=== PATIENT | male | born 1940 | race Caucasian/White ===

== ENCOUNTER 2016-05-27 05:03 | Emergency (ER) | payer OTHER ==
[~2016-05-27] VITALS: Ht 175.3 cm; Wt 90.0 kg
[2016-05-27 05:10] VITALS: TEMP 36.4; Ht 175.3 cm; Wt 90.0 kg
[2016-05-27 06:05] LABS: COMPLETE YES; EOS % 1.8 %; HEMATOCRIT 29.7 % (42-52); IG% 0.3 %; LYMPH % 11.8 %; MEAN CELL VOLUME 92.2 fL (80-100); MEAN CORPUSCULAR HEMOGLOBIN 31.7 pg (25-34); MEAN CORPUSCULAR HGB CONC 34.3 g/dl (32-36); MEAN PLATELET VOLUME 9.7 fL (7.4-10.4); NEUT % 66.1 %; PLATELET COUNT 156 K/uL (130-400); RED BLOOD COUNT 3.22 M/uL (4.7-6.1)
[2016-05-27] MEDS ORDERED: CHOL2000 PO (06:16)
[2016-05-27] MEDS ORDERED: PANT40TA PO (06:16)
[2016-05-27] MEDS ORDERED: AMLO-114 PO (06:16)
[2016-05-27] MEDS ORDERED: CLOP1TAB15 PO (06:16)
[2016-05-27] MEDS ORDERED: GLIP10TA9 PO (06:16)
[2016-05-27] MEDS ORDERED: FENO145T26 PO (06:16)
[2016-05-27] MEDS ORDERED: ATOR-22 PO (06:16)
[2016-05-27] MEDS ORDERED: PIOG1TAB20 PO (06:16)
[2016-05-27] MEDS ORDERED: METO-551 PO (06:16)
[2016-05-27] MEDS ORDERED: FURO-85 PO (06:16)
[2016-05-27] MEDS ORDERED: VALS320T PO (06:16)
[2016-05-27] MEDS ORDERED: ASPI81TA28 PO (06:16)
[2016-05-27 06:25] LABS: BUN/CREATININE RATIO 13.7 (10-20); CALCIUM 8.7 mg/dl (8.5-10.1); CREATININE 2.8 mg/dl (0.60-1.40); POTASSIUM 3.6 mmol/L (3.5-5.1)
[2016-05-27 06:28] LABS: ALB/GLOB RATIO 0.8 (0.9-2)
[2016-05-27 06:34] LABS: URINE APPEARANCE TURBID (CLEAR); URINE BILIRUBIN NEG (NEG); URINE COLOR DK YELLOW; URINE EPITHELIAL CELL AUTO >30 /lpf (0-5); URINE NITRITE NEG (NEG); URINE PH 5.5 (4.5-7.5); URINE SPECIFIC GRAVITY 1.017 (1.000-1.030); UROBILINOGEN NEG (NEG); ZZURINE CULT IF INDIC CATH YES
[2016-05-27 06:44] LABS: MANUAL MICROSCOPIC REQUIRED? NO; REVIEW REQ? YES
--- NOTE | 2016-05-27 07:10 | EMERGENCY ROOM VISIT NOTE ---
ED Visit Note First contact with patient: 05:18 I saw this patient in conjunction with Ty Newberry PA-C. I agree with his decision making and treatment plan.
[2016-05-27] MEDS ORDERED: CIPROFLOXACIN 500 MG TAB PO STA (07:14)
[2016-05-27] MEDS ORDERED: CIPR-255 PO (07:21)
[2016-05-27 07:45] VITALS: BP 133/68; PULSE 72; O2SAT 99
--- NOTE | 2016-05-28 01:16 | EMERGENCY ROOM VISIT NOTE ---
History First contact with patient: 05:18 Chief Complaint: HYPOGLYCEMIA Stated Complaint: HYPOGLYCEMIA Nursing Triage Summary: Patient arrived via ems. ems reports patient had hyperglycemic episode at home with decreased mental status and lethargy with bsg of 41. ems administered d10 iv and patient regained mental status. bsg post d10 121. History of Present Illness The patient is a 75 year old male who presents to the Emergency Room with complaints of hyperglycemic episode at home. The patient is a diabetic and is not on insulin. He does take glipizide and pioglitazone. Patient has been feeling somewhat ill the past 2-3 days and has not been eating as normal. He has been taking his medications as prescribed, and tonight he was acting very tired and not himself. His contacted EMS, the patient was found to have a blood sugar of 41. He was given D10 by EMS and brought to the ER. He had a blood sugar of 121 after the D10, and felt significantly better with return to baseline. The patient does have a significant history of diabetes, chronic kidney disease, and prostate disease. He does have an indwelling Louis. The patient does not report fever at home. No chest pain, chest tightness, shortness of breath. He does not report new numbness or paresthesias. He is without additional complaint. Review of Systems More than 10 systems were reviewed and otherwise negative with the exception of history of present illness. Past Medical/Surgical History Diabetes, chronic kidney disease Family History No pertinent family history Social History Smoking Status: Former Smoker Current/Historical Medications Scheduled Amlodipine (Norvasc), 10 MG PO DAILY Aspirin (Aspirin Ec), 81 MG PO DAILY Atorvastatin (Lipitor), 20 MG PO DAILY Cholecalciferol (Vitamin D3), 1 CAP PO DAILY Ciprofloxacin Hcl (Cipro), 500 MG PO BID Clopidogrel (Plavix), 75 MG PO DAILY Fenofibrate (Tricor ), 145 MG PO DAILY Furosemide (Lasix), 20 MG PO DAILY Glipizide (Glucotrol), 20 MG PO BID Metoprolol Tartrate (Lopressor), 50 MG PO BID Pantoprazole (Protonix), 40 MG PO QAM Pioglitazone Hcl (Pioglitazone Hcl), 45 MG PO DAILY Valsartan (Diovan), 320 MG PO DAILY Allergies Coded Allergies: No Known Allergies (Unverified , 05/27/16) Physical Exam Vital Signs Date Time Temp Pulse Resp B/P Pulse Ox O2 Delivery O2 Flow Rate FiO2 05/27/16 07:45 72 18 133/68 99 05/27/16 06:38 76 16 125/72 98 Room Air 05/27/16 05:10 36.4 60 16 164/80 100 Room Air Pain Rating (0-10): 0 Physical Exam VITALS: Vitals are noted on the nurse's note and reviewed by myself. Vital signs stable. GENERAL: Well-developed, well-nourished, white male, who is in no acute distress and resting comfortably. Patient is cooperative with the examination. HEAD: Normocephalic atraumatic. NECK: Supple without nuchal rigidity. No lymphadenopathy. No thyromegaly. Cervical spine is nontender. HEART: Regular rate and rhythm without murmurs gallops or rubs. LUNGS: Clear to auscultation bilaterally without wheezes, rales or rhonchi. No retractions or accessory muscle use. ABDOMEN: Positive normal bowel sounds x 4. Soft, nontender, without masses or organomegaly. No guarding or rebound tenderness. MUSCULOSKELETAL: No muscle atrophy, erythema, or edema noted. Full range of motion without joint tenderness in all extremities NEURO: Patient was alert and oriented to person place and time. CN II through XII grossly intact. Medical Decision & Procedures Laboratory Results 05/27/16 05:52 Red Blood Count 3.22, Mean Corpuscular Volume 92.2, Mean Corpuscular Hemoglobin 31.7, Mean Corpuscular Hemoglobin Concent 34.3, Mean Platelet Volume 9.7, Neutrophils (%) (Auto) 66.1, Lymphocytes (%) (Auto) 11.8, Monocytes (%) (Auto) 20.0, Eosinophils (%) (Auto) 1.8, Basophils (%) (Auto) 0.0, Neutrophils # (Auto ) 2.25, Lymphocytes # (Auto) 0.40, Monocytes # (Auto) 0.68, Eosinophils # (Auto ) 0.06, Basophils # (Auto) 0.00 05/27/16 05:52 Test 05/27/16 05:50 05/27/16 05:52 05/27/16 06:48 Urine Color DK YELLOW Urine Appearance TURBID (CLEAR) Urine pH 5.5 (4.5-7.5) Urine Specific [place] 1.017 (1.000-1.030) Urine Protein 1+ (NEG) Urine Glucose (UA) TRACE (NEG) Urine Ketones NEG (NEG) Urine Occult Blood TRACE (NEG) Urine Nitrite NEG (NEG) Urine Bilirubin NEG (NEG) Urine Urobilinogen NEG (NEG) Urine Leukocyte Esterase MODERATE (NEG) Urine WBC (Auto) >30 /hpf (0-5) Urine RBC (Auto) 0-4 /hpf (0-4) Urine Hyaline Casts (Auto) 1-5 /lpf (0-5) Urine Epithelial Cells (Auto) >30 /lpf (0-5) Urine Bacteria (Auto) 3+ (NEG) Urine Pathogenic Casts /lpf (0) White Blood Count 3.40 K/uL (4.8-10.8) Red Blood Count 3.22 M/uL (4.7-6.1) Hemoglobin 10.2 g/dL (14.0-18.0) Hematocrit 29.7 % (42-52) Mean Corpuscular Volume 92.2 fL (80-100) Mean Corpuscular Hemoglobin 31.7 pg (25-34) Mean Corpuscular Hemoglobin Concent 34.3 g/dl (32-36) Platelet Count 156 K/uL (130-400) Mean Platelet Volume 9.7 fL (7.4-10.4) Neutrophils (%) (Auto) 66.1 % Lymphocytes (%) (Auto) 11.8 % Monocytes (%) (Auto) 20.0 % Eosinophils (%) (Auto) 1.8 % Basophils (%) (Auto) 0.0 % Neutrophils # (Auto) 2.25 K/uL (1.4-6.5) Lymphocytes # (Auto) 0.40 K/uL (1.2-3.4) Monocytes # (Auto) 0.68 K/uL (0.11-0.59) Eosinophils # (Auto) 0.06 K/uL (0-0.5) Basophils # (Auto) 0.00 K/uL (0-0.2) RDW Standard Deviation 51.2 fL (36.4-46.3) RDW Coefficient of Variation 14.9 % (11.5-14.5) Immature Granulocyte % (Auto) 0.3 % Immature Granulocyte # (Auto) 0.01 K/uL (0.00-0.02) Anion Gap 9.0 mmol/L (3-11) Est Creatinine Clear Calc Drug Dose 26.1 ml/min Estimated GFR () 24.8 Estimated GFR (Non- 21.4 BUN/Creatinine Ratio 13.7 (10-20) Calcium Level 8.7 mg/dl (8.5-10.1) Total Bilirubin 0.8 mg/dl (0.2-1) Aspartate Amino Transf (AST/SGOT) 40 U/L (15-37) Alanine Aminotransferase (ALT/SGPT) 27 U/L (12-78) Alkaline Phosphatase 48 U/L (45-117) Total Protein 7.3 gm/dl (6.4-8.2) Albumin 3.3 gm/dl (3.4-5.0) Globulin 4.0 gm/dl (2.5-4.0) Albumin/Globulin Ratio 0.8 (0.9-2) Bedside Glucose 100 mg/dl (70-99) Medications Administered Medications (Trade) Dose Ordered Sig/Margaret Route Start Time Stop Time Status Last Admin Dose Admin Ciprofloxacin (Cipro Tab) 500 mg NOW STAT PO 05/27/16 07:14 05/27/16 07:15 DC 05/27/16 07:23 500 MG ED Course Physical exam and history were performed. Nursing notes and EMR were reviewed. Patient appears to have had a hypoglycemic episode at home earlier today. EMS was contacted by his . Upon arrival the patient appears well and is quite cooperative. IV access was established and labs were obtained. Urinalysis was collected. The patient had serial bedside glucose was performed here in the department. The patient blood work is as above and was reviewed. He is slightly anemic with an increased BUN/creatinine. This is felt to be likely from chronic kidney disease. His blood sugar was consistently above 100 here in the department. He does not have a significant elevated white blood cell count or other gross electrolyte imbalance. His urine from his catheter was highly concerning for UTI, the patient was started on Cipro here in the department. We also gave him a breakfast tray as he has not been eating well the past 3 days. I discussed the case with my attending physician, Dr. Ryder, who also independently evaluated the patient. We suspect the patient has a UTI that has made him feel with decreased appetite. While taking his normal diabetic medication, this likely pushed his sugar lower than normal, causing his symptoms. The patient was able to eat, drink, and remained without significant complaints here in the department. We will treat his UTI symptoms with Cipro. He does have a good home support network with his , and he believes he can get in with his primary care physician on Sunday after the weekend. This appears reasonable. The patient was asked to return to the ER anytime with any new, worsening, or concerning symptoms. He rated his discomfort a 0/10 at the time of departure. The chart was completed utilizing [employer] Speech Voice Recognition Software. Grammatical errors, random word insertions, pronoun errors, and incomplete sentences are an occasional consequence of this system due to software limitations, ambient noise, and hardware issues. Any formal questions or concerns about the content, text, or information contained within the body of this dictation should be directly addressed to the provider for clarification. . Medical Decision Differential diagnosis includes, but is not limited to: Infection, hypoglycemia , sepsis, altered mental status, and others Impression Primary Impression: Hypoglycemia Additional Impression: Urinary tract infection Departure Information Dispostion Home / Self-Care Condition GOOD Prescriptions Ciprofloxacin Hcl (CIPRO) 500 Mg Tab 500 MG PO BID for 10 Days, #20 TAB Prov: Ty Newberry PA-C 05/27/16 Forms HOME CARE DOCUMENTATION FORM, IMPORTANT VISIT INFORMATION Patient Instructions My [facility] Additional Instructions You were seen and evaluated today on an emergency basis only. This is not a substitute for, or an effort to provide, complete comprehensive medical care. It is not possible to recognize and treat all injuries or illnesses in a single emergency department visit. For this reason it is recommended that you followup with your primary care physician on Sunday or Sunday for ongoing care and evaluation. Ciprofloxacin(Cipro) 500mg: Take one pill twice daily for 10 days for your infection. All antibiotics can cause diarrhea. If this occurs and you feel worse or it does not resolve in 1-2 days follow up with your doctor or return to the Emergency Department as this could be signs of serious underlying problems. If you experience any pain in your tendons or any tendon injury return to the ER for re-evaluation. Any medication can cause an allergic reaction, stop the pills immediately and return to the ER for rash, hives, breathing difficulties, or swelling. You are welcome to return to the emergency department anytime with new, worsening, or concerning symptoms. Problem Qualifiers
== END 2016-05-27 07:46 | disposition home or self-care (01) ==
LOC: EDBD 05:03 → C.EDB 05:05
DX: E11.649 Type 2 diabetes mellitus with hypoglycemia without coma (principal); N39.0 Urinary tract infection, site not specified; Z79.82 Long term (current) use of aspirin; Z79.899 Other long term (current) drug therapy; Z87.891 Personal history of nicotine dependence; N18.9 Chronic kidney disease, unspecified; D64.9 Anemia, unspecified

== ENCOUNTER 2019-12-23 12:27 | Observation (INO) ==
--- NOTE | 2019-12-23 13:37 | Emergency Department Note ---
History of Present Illness General Chief complaint: Chest Pain Stated complaint: chest pain Time Seen by Provider: 12/23/19 13:25 Source: patient Mode of arrival: EMS Limitations: no limitations History of Present Illness Provider complaint: Epigastric pain, failed outpatient stress test Location: abdomen Radiation: non-radiation Severity: moderate and similar to prior episodes Pain Consistency: + intermittent and + now resolved Current Pain Intensity: 0 Quality: + aching Relieved By: + none Exacerbated By: + movement Associated symptoms: no chest pain, no cough, no diaphoresis, no fever/chills, no nausea/vomiting, no shortness of breath and no syncope Treatments prior to arrival: none This is a 79-year-old male who presents the emergency department via EMS after failing an outpatient stress test. Patient states a stress test has been scheduled as he had noted intermittent epigastric discomfort particularly with exertion. States pain is dull and nonradiating. Patient denied any other coming symptoms. Patient states while getting his stress test he began having the pain again and was told his EKG was abnormal. Pt was given asa and nitro and by the time he arrived in the ER his symptoms were resolved. VS stable per EMS. Pt states he feels no symptoms at the time of my evaluation. Pt denies any prior cardiac history. States there are a history of WA's in the family. Pt doesn't routinely see cardiology. Pt denies any recent fevers, cough, or URI symptoms. Pt denies any accompanying dizziness or nausea with the symptoms today. No recent black or bloody stools. Pt seen during a time of high acuity and national emergency pandemic while wearing PPE. Home Medications Home Medications Medication Instructions Recorded Confirmed Type cholecalciferol (vitamin D3) 2,000 unit PO DAILY 10/09/18 12/23/19 History [Vitamin D3] glipizide 10 mg PO DAILY 10/09/18 12/23/19 History pantoprazole 40 mg PO QAM 10/09/18 12/23/19 History pioglitazone 45 mg PO HS 10/09/18 12/23/19 History acetaminophen [Tylenol Extra 1,000 mg PO Q8H PRN 12/23/19 12/23/19 History Strength] aspirin 81 mg PO DAILY 12/23/19 12/23/19 History furosemide [Lasix] 40 mg PO DAILY 12/23/19 12/23/19 History metoprolol succinate 100 mg PO DAILY 12/23/19 12/23/19 History Heparin IV Low Dose WITH Bolus 1 dose IV Q15M #0 12/24/19 Rx atorvastatin 40 mg PO HS #0 tab 12/24/19 12/23/19 Rx isosorbide mononitrate 30 mg PO QAM #0 tab 12/24/19 Rx nitroglycerin [Nitro-Bid] 1 inch EXT Q6H #0 g 12/24/19 Rx Allergies Allergy/AdvReac Type Severity Reaction Status Date / Time No Known Allergies Allergy Verified 12/23/19 15:14 Past Med/Surg History Medical History (Updated 12/25/19 @ 17:23 by Tracey Lyles, ) Chronic heart failure with preserved ejection fraction (HFpEF) Chronic indwelling Louis catheter CKD (chronic kidney disease) stage 4, GFR 15-29 ml/min Diabetic retinopathy DM type 2 (diabetes mellitus, type 2) GERD (gastroesophageal reflux disease) HLD (hyperlipidemia) HTN (hypertension) Macular degeneration PVD (peripheral vascular disease) Vitamin D deficiency Surgical History (Updated 12/23/19 @ 15:37 by Maria Luisa Mae PA-C) Arteriovenous fistula LUE, patent History of amputation of lesser toe of right foot History of cataract extraction History of tonsillectomy and adenoidectomy Family History Father Heart disease WA @ age 77 Sister Diabetes Mother Cirrhosis Social History (Updated 12/23/19 @ 15:38 by Maria Luisa Mae PA-C) Smoking Status: Never smoker Second Hand Exposure: No; Hx Alcohol Use: No Hx Substance Use: No Preferred Language: Persian Communication Ability: Effective Beliefs That Will Affect Care: None marital status: / marital status details: passed 03/2019 Current Living Situation: Alone Feels Safe at Home: Yes Assistive Devices: Cane, Glasses and Walker Review of Systems See HPI for pertinent positives & negatives. and A total of 10 systems reviewed and were otherwise negative Physical Exam Vital Signs Vital Signs - 24 hr 12/23/19 12:33 12/23/19 12:36 12/23/19 12:41 Temperature 36.6 C Temperature Source Oral Pulse Rate 78 78 77 Pulse Rate from SpO2 Sensor 78 77 Respiratory Rate 20 12 Respiratory Depth Normal Blood Pressure 149/76 H 149/76 H Blood Pressure Mean 100 98 Pulse Oximetry 100 100 99 Oxygen Delivery Method Room Air Sepsis Recent Fever Within 48 Hours No Sepsis New/Unexplained Change in Mental Status N/A Sepsis Action Taken by Nursing No Action Required 12/23/19 12:50 12/23/19 13:00 12/23/19 13:10 Temperature Temperature Source Pulse Rate 80 75 74 Pulse Rate from SpO2 Sensor 80 75 74 Respiratory Rate 19 17 16 Respiratory Depth Blood Pressure Blood Pressure Mean Pulse Oximetry 97 99 100 Oxygen Delivery Method Sepsis Recent Fever Within 48 Hours Sepsis New/Unexplained Change in Mental Status Sepsis Action Taken by Nursing 12/23/19 13:20 12/23/19 13:30 12/23/19 13:40 Temperature Temperature Source Pulse Rate 73 67 77 Pulse Rate from SpO2 Sensor 74 66 75 Respiratory Rate 22 14 16 Respiratory Depth Blood Pressure Blood Pressure Mean Pulse Oximetry 97 99 100 Oxygen Delivery Method Sepsis Recent Fever Within 48 Hours Sepsis New/Unexplained Change in Mental Status Sepsis Action Taken by Nursing 12/23/19 13:50 12/23/19 14:00 12/23/19 14:10 Temperature Temperature Source Pulse Rate 73 61 65 Pulse Rate from SpO2 Sensor 61 65 Respiratory Rate 17 11 L 22 Respiratory Depth Blood Pressure Blood Pressure Mean Pulse Oximetry 100 100 Oxygen Delivery Method Sepsis Recent Fever Within 48 Hours Sepsis New/Unexplained Change in Mental Status Sepsis Action Taken by Nursing 12/23/19 14:20 12/23/19 14:30 Temperature Temperature Source Pulse Rate 61 61 Pulse Rate from SpO2 Sensor 60 60 Respiratory Rate 13 16 Respiratory Depth Blood Pressure 166/69 H Blood Pressure Mean 99 Pulse Oximetry 100 99 Oxygen Delivery Method Sepsis Recent Fever Within 48 Hours Sepsis New/Unexplained Change in Mental Status Sepsis Action Taken by Nursing GENERAL: alert, well appearing, well nourished, no distress, non-toxic EYE EXAM: normal conjunctiva, PERRL and EOM's grossly intact OROPHARYNX: no exudate, no erythema, lips, buccal mucosa, and tongue normal and mucous membranes are moist NECK: supple, no nuchal rigidity, no adenopathy, non-tender LUNGS: Clear to auscultation. Normal chest wall mechanics, no w/r/r HEART: no murmurs, S1 normal and S2 normal ABDOMEN: abdomen soft, non-tender, normo-active bowel sounds, no masses, no rebound or guarding. No reproducible pain. BACK: Back is symmetrical on inspection and there is no deformity, no midline tenderness, no CVA tenderness. SKIN: no rashes and no bruising UPPER EXTREMITIES: upper extremities are grossly normal. FROM, nml pulses b/l. LOWER EXTREMITIES: No pitting edema. FROM, nml pulses b/l. NEURO EXAM: Normal sensorium, cranial nerves II-XII grossly intact, normal speech, no gross weakness of arms, no gross weakness of legs. Gross sensation intact. Course Course 1435: Discussed with Maria Luisa Gibson, [facility] hospitalist service. Administered Medications Discontinued Medications Aspirin (Aspirin 81 Mg Ectab) 81 mg PO DAILY [facility] Stop: 01/23/20 08:59 Last Admin: 12/24/19 08:38 Dose: 81 mg Documented by: [id number] Atorvastatin Calcium (Atorvastatin 40 Mg Tab) 40 mg PO HS [facility] Stop: 01/22/20 20:59 Last Admin: 12/23/19 21:25 Dose: 40 mg Documented by: [id number] Furosemide (Furosemide 40 Mg Tab) 40 mg PO DAILY [facility] Stop: 01/23/20 08:59 Last Admin: 12/24/19 08:39 Dose: 40 mg Documented by: [id number] Heparin Sodium (Porcine) (Heparin Sod 5,000 Unit/0.5 Ml Vial) 5,000 units SQ Q8 [facility] Stop: 01/22/20 21:59 Last Admin: 12/24/19 05:57 Dose: 5,000 units Documented by: [id number] Cosigned by: [id number] Admin: 12/23/19 22:38 Dose: Not Given Documented by: [id number] Heparin Sodium/Dextrose (Heparin Iv Low Dose With Bolus) 1 ea IV Q15M [facility]; Protocol Stop: 01/23/20 11:32 Last Admin: 12/24/19 12:27 Dose: 1 ea Documented by: [id number] Admin: 12/24/19 12:03 Dose: 1 ea Documented by: [id number] Admin: 12/24/19 12:02 Dose: 1 ea Documented by: [id number] Admin: 12/24/19 11:45 Dose: 1 ea Documented by: [id number] Magnesium Sulfate/Dextrose (Magnesium Sulfate / D5w) 1 gm in 100 mls @ 100 mls/hr IV Q1H [facility] Stop: 12/23/19 16:05 Last Infusion: 12/23/19 16:49 Dose: 0 mls/hr Documented by: [id number] Admin: 12/23/19 15:44 Dose: 100 mls/hr Documented by: [id number] Infusion: 12/23/19 15:44 Dose: 0 mls/hr Documented by: [id number] Admin: 12/23/19 14:27 Dose: 100 mls/hr Documented by: [id number] Heparin Sodium/Dextrose (Heparin Sodium/Dextrose) 25,000 units in 500 mls @ 19 mls/hr IV .Q24H [facility]; Protocol Stop: 01/23/20 12:29 Last Admin: 12/24/19 12:37 Dose: 950 units/hr, 19 mls/hr Documented by: [id number] Cosigned by: [id number] Heparin Sodium (Porcine) 4,000 (units/ Syringe) 4 mls @ 10 mls/min IV NOW ONE Stop: 12/24/19 12:46 Last Admin: 12/24/19 12:53 Dose: 10 mls/min Documented by: [id number] Cosigned by: [id number] Insulin Aspart (Insulin Aspart 100 Units/Ml 3 Ml Pen) 0 units SC ACHS [facility] Stop: 01/22/20 17:58 Last Admin: 12/24/19 12:01 Dose: Not Given Documented by: [id number] Cosigned by: [id number] Admin: 12/24/19 07:32 Dose: Not Given Documented by: [id number] Admin: 12/23/19 21:41 Dose: Not Given Documented by: [id number] Admin: 12/23/19 21:40 Dose: 2 units Documented by: [id number] Cosigned by: [id number] Insulin Aspart (Insulin Aspart Per Unit) Confirm Administered Dose 1 units .ROUTE .STK-MED ONE Stop: 12/23/19 21:02 Last Admin: 12/23/19 21:41 Dose: Not Given Documented by: [id number] Insulin Glargine (Insulin Glargine Solostar 100 Units/Ml 3 Ml Pen) 0 units SC BID [facility]; Protocol Stop: 01/22/20 20:59 Last Admin: 12/24/19 08:33 Dose: Not Given Documented by: [id number] Admin: 12/23/19 21:25 Dose: Not Given Documented by: [id number] Insulin Human Regular (Novolin-R Insulin Per Unit Charge) Confirm Administered Dose 1 units .ROUTE .STK-MED ONE Stop: 12/23/19 21:01 Last Admin: 12/23/19 21:40 Dose: Not Given Documented by: [id number] Isosorbide Mononitrate (Isosorbide Roane Extended Rel 30 Mg Tabcr) 30 mg PO QAM [facility] Stop: 01/22/20 15:29 Last Admin: 12/24/19 09:22 Dose: 30 mg Documented by: [id number] Admin: 12/23/19 15:55 Dose: 30 mg Documented by: [id number] Metoprolol Succinate (Metoprolol Succ 50mg Ext Rel Tab) 100 mg PO DAILY [facility] Stop: 01/23/20 08:59 Last Admin: 12/24/19 08:38 Dose: 100 mg Documented by: [id number] Nitroglycerin (Nitroglycerin 2% Ointment 30gm Tube) 1 inch EXT Q6H [facility] Stop: 01/23/20 11:59 Last Admin: 12/24/19 12:37 Dose: 1 inch Documented by: [id number] Pantoprazole Sodium (Pantoprazole 40 Mg Tab) 40 mg PO QAM [facility] Stop: 01/23/20 08:59 Last Admin: 12/24/19 08:39 Dose: 40 mg Documented by: [id number] Vitamin D (Cholecalciferol 1,000 Units 25 Mcg Tab) 2,000 units PO DAILY [facility] Stop: 01/23/20 08:59 Last Admin: 12/24/19 08:38 Dose: 2,000 units Documented by: [id number] Medical Decision Making Differential Diagnosis Differential diagnoses includes but is not limited to gastritis, peptic ulcer disease, GERD, gallbladder disease, pancreatitis, small bowel obstruction, acute coronary syndrome, pericarditis, ischemic bowel, irritable bowel disease, irritable bowel syndrome, appendicitis, diverticulitis, malignancy, hernia, urinary tract infection, torsion, [/ectopic (if female)], perforation, trauma, infectious. Medical Records Attestation: I reviewed the patient's medical records. Home Medications Current Medication List: was personally reviewed by me Laboratory Data Attestation: I reviewed the patient's lab results. Result diagrams: 12/24/19 05:02 12/24/19 05:02 Lab Results 12/23/19 12/23/19 12/23/19 Range/Units 13:00 13:00 13:00 WBC 4.85 (4.8-10.8) K/uL RBC 3.58 L (4.7-6.1) M/uL Hgb 11.1 L (14.0-18.0) g/dL Hct 33.1 L (42-52) % MCV 92.5 (80-100) fL MCH 31.0 (25-34) pg MCHC 33.5 (32-36) g/dL RDW Std Deviation 45.5 (36.4-46.3) fL RDW Coeff of Jan 13.5 (11.5-14.5) % Plt Count 149 (130-400) K/uL MPV 10.6 H (7.4-10.4) fL Immature Gran % (Auto) 0.4 % Neut % (Auto) 77.9 % Lymph % (Auto) 13.0 % Roane % (Auto) 6.0 % Eos % (Auto) 2.5 % Baso % (Auto) 0.2 % Neut # (Auto) 3.78 (1.4-6.5) K/uL Lymph # (Auto) 0.63 L (1.2-3.4) K/uL Roane # (Auto) 0.29 (0.11-0.59) K/uL Eos # (Auto) 0.12 (0-0.5) K/uL Baso # (Auto) 0.01 (0-0.2) K/uL Immature Gran # (Auto) 0.02 (0.00-0.02) K/uL PT 11.7 (9.0-12.0) Seconds INR 1.1 (0.9-1.1) Sodium 138 (136-145) mmol/L Potassium 4.9 (3.5-5.1) mmol/L Chloride 107 (98-107) mmol/L Carbon Dioxide 27 (21-32) mmol/L Anion Gap 5.0 (3-11) BUN 56 H (7-18) mg/dl Creatinine 2.89 H (0.6-1.4) mg/dl Est Cr Clr Drug Dosing 24.4 ml/min Est GFR ( Amer) 23.2 Est GFR (Non-Af Amer) 20.0 BUN/Creatinine Ratio 19.4 (10-20) Glucose 96 (70-99) mg/dl Calcium 8.5 (8.5-10.1) mg/dl Magnesium 1.5 L (1.8-2.4) mg/dl Total Bilirubin 0.4 (0.2-1) mg/dl AST 27 (15-37) U/L ALT 24 (12-78) U/L Alkaline Phosphatase 86 (45-117) U/L Troponin I < 0.015 (0-0.045) ng/ml Total Protein 7.1 (6.4-8.2) gm/dl Albumin 3.5 (3.4-5.0) gm/dl Globulin 3.6 (2.5-4.0) gm/dl Albumin/Globulin Ratio 1.0 (0.9-2) Lipase 299 (73-393) U/L 10/20/20 Range/Units 13:00 WBC (4.8-10.8) K/uL RBC (4.7-6.1) M/uL Hgb (14.0-18.0) g/dL Hct (42-52) % MCV (80-100) fL MCH (25-34) pg MCHC (32-36) g/dL RDW Std Deviation (36.4-46.3) fL RDW Coeff of Jan (11.5-14.5) % Plt Count (130-400) K/uL MPV (7.4-10.4) fL Immature Gran % (Auto) % Neut % (Auto) % Lymph % (Auto) % Roane % (Auto) % Eos % (Auto) % Baso % (Auto) % Neut # (Auto) (1.4-6.5) K/uL Lymph # (Auto) (1.2-3.4) K/uL Roane # (Auto) (0.11-0.59) K/uL Eos # (Auto) (0-0.5) K/uL Baso # (Auto) (0-0.2) K/uL Immature Gran # (Auto) (0.00-0.02) K/uL PT (9.0-12.0) Seconds INR (0.9-1.1) Sodium (136-145) mmol/L Potassium (3.5-5.1) mmol/L Chloride (98-107) mmol/L Carbon Dioxide (21-32) mmol/L Anion Gap (3-11) BUN (7-18) mg/dl Creatinine (0.6-1.4) mg/dl Est Cr Clr Drug Dosing ml/min Est GFR ( Amer) Est GFR (Non-Af Amer) BUN/Creatinine Ratio (10-20) Glucose (70-99) mg/dl Calcium (8.5-10.1) mg/dl Magnesium 1.5 L (1.8-2.4) mg/dl Total Bilirubin (0.2-1) mg/dl AST (15-37) U/L ALT (12-78) U/L Alkaline Phosphatase (45-117) U/L Troponin I < 0.015 (0-0.045) ng/ml Total Protein (6.4-8.2) gm/dl Albumin (3.4-5.0) gm/dl Globulin (2.5-4.0) gm/dl Albumin/Globulin Ratio (0.9-2) Lipase (73-393) U/L Imaging Data My Impression: X-ray: I interpreted the following studies. Chest: A single view study of the chest was reviewed and was negative for cardiomegaly, focal infiltrate, effusion, pulmonary edema, or wide mediastinum. ECG Data Attestation: I personally reviewed and interpreted this ECG as follows: Indication: + abdominal pain Rate (beats per minute): 80 Rhythm: + normal sinus ECG Intervals/blocks: + First degree AV block, + Normal QRS and + Normal QT ECG ST segments: + Nonspecific ST abnormalities Additional Comments: Questionable early ST elevation noted inferiorly/anteriorly, not a full mm, no reciprocal changes This is markedly improved compared to EKGs from stress test sent with from outpatient office Blood Pressure Blood Pressure Findings: Elevated blood pressure Blood Pressure Disposition: further management by hospitalist MDM Narrative Pt sent in by cardiology after a failed outpt stress test. VS stable and pt without symptoms on arrival here. Pt's description is that of exertional symptoms, none at rest. No acute EKG changes. Labs drawn and sent and cxr performed. Pt continued to be symptom free while in the ER. VS stable. No recurrent pain. Case discussed with hospitalist for additional mgmt prior to all results returning. Will defer initiation of heparin to them. Discussed with patient additional cardiac testing likely needed. First troponin negative. An order was placed for continuous cardiac monitoring. The monitor shows a rate of 58__ with _sinus brady__ rhythm. Impression & Plan Exertional angina, Abnormal dobutamine stress echocardiogram, HTN (hypert ension), Hypomagnesemia, CKD (chronic kidney disease) stage 4, GFR 15-29 ml/min Discharge Plan Visit Data Chief Complaint: Chest Pain Stated Complaint: chest pain ED Provider: Tracey Lyles Discharge Problem: Exertional angina, Abnormal dobutamine stress echocardiogram, HTN (hypertension), Hypomagnesemia, CKD (chronic kidney disease) stage 4, GFR 15-29 ml/min Patient Disposition: Admitted As Inpatient Discharge Instructions Interventions: ED Discharge Assessment Last Done: 12/24/19 11:03 Discharge Problem: HTN (hypertension) Qualifiers: Hypertension type: essential hypertension Qualified Code(s): I10 - Essential (primary) hypertension
[2019-12-23 13:44] LABS: Basophils # (auto) 0.01 K/uL (0-0.2); Basophils % (auto) 0.2 %; Eosinophils # (auto) 0.12 K/uL (0-0.5); Eosinophils % (auto) 2.5 %; Hematocrit (blood only) 33.1 % (42-52); Hemoglobin 11.1 g/dL (14.0-18.0); Immature Granulocytes # (auto) 0.02 K/uL (0.00-0.02); Immature Granulocytes % (auto) 0.4 %; Lymphocytes # (auto) 0.63 K/uL (1.2-3.4); Mean Corpuscular Hgb Conc 33.5 g/dL (32-36); Mean Corpuscular Volume 92.5 fL (80-100); Mean Platelet Volume 10.6 fL (7.4-10.4); Monocytes # (auto) 0.29 K/uL (0.11-0.59); Neutrophils # (auto) 3.78 K/uL (1.4-6.5); Neutrophils % (auto) 77.9 %; Platelet Count 149 K/uL (130-400); RDW Coefficient of Variation 13.5 % (11.5-14.5); RDW Standard Deviation 45.5 fL (36.4-46.3); Red Blood Count 3.58 M/uL (4.7-6.1); White Blood Count 4.85 K/uL (4.8-10.8)
[2019-12-23 13:50] LABS: Alanine Aminotransferase 24 U/L (12-78); Albumin Level 3.5 gm/dl (3.4-5.0); Aspartate Aminotransferase 27 U/L (15-37); BUN Creatinine Ratio 19.4 (10-20); Blood Urea Nitrogen 56 mg/dl (7-18); Calcium 8.5 mg/dl (8.5-10.1); Carbon Dioxide 27 mmol/L (21-32); Chloride 107 mmol/L (98-107); Creatinine Clr Calc Pharmacy 24.4 ml/min; Est GFR (African American) 23.2; Glucose 96 mg/dl (70-99); Magnesium 1.5 mg/dl (1.8-2.4); Potassium 4.9 mmol/L (3.5-5.1); Sodium 138 mmol/L (136-145)
[2019-12-23 13:55] LABS: Alkaline Phosphatase 86 U/L (45-117); Bilirubin,Total 0.4 mg/dl (0.2-1); Globulin 3.6 gm/dl (2.5-4.0); INR 1.1 (0.9-1.1); Lipase 299 U/L (73-393); Prothrombin Time 11.7 Seconds (9.0-12.0); Total Protein 7.1 gm/dl (6.4-8.2); Troponin I < 0.015 ng/ml (0-0.045)
[2019-12-23] MEDS: MAGNESIUM SULFATE / D5W 1 GM/100 ML BAG IV SCH ×2 (14:27→15:44)
--- NOTE | 2019-12-23 14:41 | Cardiology Consultation ---
Date of Consultation December 23, 2019 Assessment & Plan (1) Abnormal dobutamine stress echocardiogram: (2) Exertional angina: (3) CKD (chronic kidney disease) stage 4, GFR 15-29 ml/min: (4) DM type 2 (diabetes mellitus, type 2): 79-year-old patient with CKD stage IV presents for evaluation of abnormal dobutamine stress echo with significant anginal symptoms during testing and recovery. Significant ischemic ECG changes recorded. Patient currently pain- free after 20 mg IV metoprolol and 2 sublingual nitroglycerin. Initial troponin unremarkable. ST segments have returned to baseline and patient currently asymptomatic at rest. Describes progressive class II-III exertional angina over the preceding 5 weeks despite treatment with high-dose beta-matilda therapy, Toprol-XL 100 mg daily. Recommend addition of long-acting nitrates, isosorbide 30 mg daily. Risk versus benefit of invasive diagnostic cardiac catheterization discussed at length. Patient understands that proceeding with heart catheterization may result in need for permanent hemodialysis. Consider transfer to [facility] in a.m. for high risk cardiac catheterization. N.p.o. except medications after midnight. No indication for IV anticoagulation currently. Continue aspirin as previously ordered. Titrate atorvastatin to 40 mg daily. History of Present Illness Reason for Consultation: Chest pain, abnormal dobutamine stress echo Requesting Physician: Dr. Bradford Attending Physician: Dr. Bradford History of Present Illness 79-year-old patient presented to the cardiology clinic today for dobutamine stress echo. Testing ordered due to exertional anginal symptoms. Patient reports chest discomfort in the substernal region when walking approximately 10 to 20 feet. Symptoms consistently reproducible. Attempted to perform some minor plumbing in his home over the weekend, however, unable to complete the task due to angina. Dobutamine stress echo performed today demonstrates significant ST-T wave abnormalities with evidence of inferior, posterior, inferoseptal ischemia on stress imaging. Patient treated with 20 mg of IV metoprolol and 2 sublingual nitroglycerin. Transferred to the ER for evaluation and likely observation. Currently chest pain-free and resting comfortably. Denies any resting angina. Reports 30-year history of diabetes and CKD stage IV-V. Left upper extremity AV fistula placed nearly 1 year ago. Denies orthopnea or PND. Chronic bilateral pedal and ankle edema stable. No palpitations, lightheadedness, dizziness, syncope, or near syncope. Resting echocardiogram demonstrates preserved LV systolic function. Allergies Allergy/AdvReac Type Severity Reaction Status Date / Time No Known Allergies Allergy Verified 12/23/19 15:14 Home Medications Home Medications Medication Instructions Recorded Confirmed Type atorvastatin 20 mg PO HS 10/09/18 12/23/19 History cholecalciferol (vitamin D3) 2,000 unit PO DAILY 10/09/18 12/23/19 History [Vitamin D3] glipizide 10 mg PO DAILY 10/09/18 12/23/19 History pantoprazole 40 mg PO QAM 10/09/18 12/23/19 History pioglitazone 45 mg PO HS 10/09/18 12/23/19 History acetaminophen [Tylenol Extra 1,000 mg PO Q8H PRN 12/23/19 12/23/19 History Strength] aspirin 81 mg PO DAILY 12/23/19 12/23/19 History furosemide [Lasix] 40 mg PO DAILY 12/23/19 12/23/19 History metoprolol succinate 100 mg PO DAILY 12/23/19 12/23/19 History Patient History Medical History Hypoglycemia Urinary tract infection Family History Other No significant family history Social History Smoking Status: Never smoker Feels Safe at Home: Yes Review of Systems Review of Systems: All systems reviewed & are unremarkable except as noted in HPI & below Physical Exam Constitutional: well developed and well nourished; no acute distress and not ill appearing Respiratory: normal respiratory effort, lungs clear to auscultation Auscultation: no crackles, no rales, no rhonchi, no wheezes and no pleural rub Cardiovascular: Rate/Rhythm: regular rate and regular rhythm Heart Sounds: normal S1 and normal S2; no gallop, no murmur and no cardiac rub Vessels: no JVD and no carotid bruit Extremities: + edema (1+ bilateral pedal and ankle edema) Gastrointestinal (Abdomen): Inspection/Auscultation: abdomen normal to inspection and normal bowel sounds; abdomen not distended Percussion/Palpation: abdomen soft; abdomen nontender, no guarding and abdomen not rigid Skin: no rashes, warm and dry Neurologic: CN's II-XI intact bilaterally and moves all extremities; no focal motor deficits Speech / Cognition: normal speech Motor/Sensory: no tremor Psychiatric: A+Ox3, euthymic affect Results & Data ([facility]) Vital Signs (Past 12 Hours) Vital Signs Temp Pulse Resp BP Pulse Ox 12/23/19 12:41 77 12 99 12/23/19 12:36 78 149/76 H 100 12/23/19 12:33 36.6 C 78 20 149/76 H 100
--- NOTE | 2019-12-23 14:52 | XRay Report ---
XR chest 1V portable CLINICAL HISTORY: Abnormal stress test COMPARISON STUDY: No previous studies for comparison. FINDINGS: The cardiac and mediastinal contours are normal. There is no evidence of focal pulmonary co nsolidation. There is no evidence of failure. No pleural effusions are visualized.[There is an old ri ght-sided rib fracture. IMPRESSION: No active disease in the chest. ACT 112: Negative or not required by law. Electronically signed by: Be West M.D. 12/23/2019 2:51 PM
--- NOTE | 2019-12-23 15:18 | History & Physical Report ---
Date of Service December 23, 2019 Assessment & Plan (1) Exertional angina: (2) Abnormal dobutamine stress echocardiogram: This is a pleasant 79-year-old male who has significant past medical history of T2DM with diabetic nephropathy and retinopathy, CKD stage IV with mature left upper extremity AV fistula in place, HTN, HLD, chronic HFpEF, PVD, BPH with chronic bladder obstruction and chronic Avila catheter in place, macular degeneration, anemia of chronic disease who presents to ED secondary to abnormal stress echo outpatient prior to arrival. Given risk factors and failed outpt stress echocardiogram pt will be admitted to [facility] tele consult cardiology -appreciate their input Imdur 30mg daily started continue ASA, metoprolol, titrate statin to 40mg daily lipid panel, A1C in a.m. cycle troponins Per cardiology consider transfer to [facility] for high risk cardiac cath in a.m. in setting of CKD stage 4 NPO after midnight (3) Hypomagnesemia: mag 1.5 received 2g IV mag in ED repeat @ 1830 along with trop (4) DM type 2 (diabetes mellitus, type 2): Last A1c 7.3 on 05/07/2019 Obtain A1c in a.m. Hold pioglitazone and glipizide Lantus/NovoLog per protocol Given history of HFpEF would advise discontinuing pioglitazone in outpt setting (5) Chronic heart failure with preserved ejection fraction (HFpEF): EF 55-60%, cardiology on board continue lasix, metoprolol daily weights, strict I and O (6) CKD (chronic kidney disease) stage 4, GFR 15-29 ml/min: baseline cr 2.7-2.8, bun/cr 56 and 2.89 today follows [facility] nephro, has mature AVF in place LUE daily weights, strict I and O monitor renal function closely (7) HTN (hypertension): Blood pressure elevated in ED on metoprolol and lasix as outpt Imdur added in ED monitor (8) HLD (hyperlipidemia): continue statin, titrate to 40mg @ HS lipid panel in a.m. (9) Chronic indwelling Avila catheter: 2/2 to chronic bladder outlet obstruction, follows urology changed 15 days ago daily avila care (10) DVT prophylaxis: SQ Heparin Disposition: admit to PCU Follow up: PCP Dr. Burgess upon discharge Pt was seen and examined in collaboration with Dr. Bradford, please see addendum History of Present Illness Chief Complaint: Abnormal stress echo prior to arrival; exertional chest pain x2 to 3 months. Primary Care Provider: Dr. Burgess This is a pleasant 79-year-old male who has significant past medical history of T2DM with diabetic nephropathy and retinopathy, CKD stage IV with mature left upper extremity AV fistula in place, CAD, HTN, HLD, chronic HFpEF, PVD, BPH with chronic bladder obstruction and chronic Avila catheter in place, macular degeneration, anemia of chronic disease who presents to ED secondary to abnormal stress echo outpatient prior to arrival. Over the course the last 2 to 3 months patient has been experiencing exertional substernal chest discomfort that would last 1 to 2 minutes and resolve with resting. He had no other symptoms including shortness of breath, diaphoresis, nausea, vomiting, dizziness or presyncope. Due to risk factors he was referred to cardiology for further evaluation. There was concern for ischemia versus uremic pericarditis given the nature of symptoms. He was referred for stress echocardiogram which was performed today, 12/23/[address] Samaniego. With dobutamine stress he had EKG changes lasting greater than 10 minutes post procedure. Imaging revealed stress-induced hypokinesis of basilar and posterior inferior and inferior septal velez that did resolve after rest. He required IV metoprolol 10 mg x 2 as well as a sublingual nitro x2 with improvement of symptoms. He was referred to ED for admission and further work-up. Currently he feels well and denies any current chest pain. He further denies any recent illness, fever, chills, sweats, lightheadedness, dizziness, syncope, palpitations, shortness breath, cough, hemoptysis, nausea, vomiting, abdominal pain. He does have a Avila catheter in place which was changed approximately 15 days ago. He gets it changed every 30 days and follows with urology every 6 months. He manages the bag himself. His bowels are moving without difficulty and denies melena or hematochezia. He lives alone and does occasionally use assist device for ambulation. His in March 2019. He has been compliant with his medications. In ED patient made hemodynamically stable. Labs notable for elevated BUN and creatinine 56 and 2.89, mag 1.5, H&H 11.1 and 33.1, EKG with normal sinus rhythm [address] or T wave changes. Chest x-ray negative for acute cardiopulmonary abnormality. He was seen and evaluated by cardiology in ED. Recommendation is for inpatient evaluation and possible transfer to [facility] secondary to complicated diagnostic cardiac catheterization in setting of CKD stage IV. Allergies Allergy/AdvReac Type Severity Reaction Status Date / Time No Known Allergies Allergy Verified 12/23/19 15:14 Home Medications Home Medications Medication Instructions Recorded Confirmed Type atorvastatin 20 mg PO HS 10/09/18 12/23/19 History cholecalciferol (vitamin D3) 2,000 unit PO DAILY 10/09/18 12/23/19 History [Vitamin D3] glipizide 10 mg PO DAILY 10/09/18 12/23/19 History pantoprazole 40 mg PO QAM 10/09/18 12/23/19 History pioglitazone 45 mg PO HS 10/09/18 12/23/19 History acetaminophen [Tylenol Extra 1,000 mg PO Q8H PRN 12/23/19 12/23/19 History Strength] aspirin 81 mg PO DAILY 12/23/19 12/23/19 History furosemide [Lasix] 40 mg PO DAILY 12/23/19 12/23/19 History metoprolol succinate 100 mg PO DAILY 12/23/19 12/23/19 History Past Med/Surg History Medical History (Updated 12/23/19 @ 15:41 by Maria Luisa Mae PA-C) Chronic heart failure with preserved ejection fraction (HFpEF) Chronic indwelling Avila catheter CKD (chronic kidney disease) stage 4, GFR 15-29 ml/min Diabetic retinopathy DM type 2 (diabetes mellitus, type 2) GERD (gastroesophageal reflux disease) HLD (hyperlipidemia) HTN (hypertension) Macular degeneration PVD (peripheral vascular disease) Vitamin D deficiency Surgical History (Updated 12/23/19 @ 15:37 by Maria Luisa Mae PA-C) Arteriovenous fistula LUE, patent History of amputation of lesser toe of right foot History of cataract extraction History of tonsillectomy and adenoidectomy Family History Father Heart disease [place] @ age 77 Sister Diabetes Mother Cirrhosis Social History (Updated 12/23/19 @ 15:38 by Maria Luisa Mae PA-C) Smoking Status: Never smoker Hx Alcohol Use: Yes Alcohol type: beer Alcohol type Comment: Former, has not used alcohol in several years Hx Substance Use: No Preferred Language: Tajik Communication Ability: Effective marital status: / marital status details: passed 03/2019 Current Living Situation: Alone Feels Safe at Home: Yes Review of Systems Review of Systems: All systems reviewed & are unremarkable except as noted in HPI & below Physical Exam Physical Exam: Constitutional: WD/WN, alert, male, vitals as above, NAD, sitting up in bed, pleasant, conversing easily Head: Normocephalic, Atraumatic Eyes: PERRL, conjunctivae normal, anicteric sclerae ENMT: external ear and nose normal, oropharynx normal Neck: trachea midline, no thyromegaly normal visual inspection Respiratory: normal respiratory effort, lungs clear to auscultation, no wheeze, rales, rhonchi. Normal insp/exp effort, no accessory muscle use Cardiovascular: RRR, no murmur, trace pedal edema, Vessels: no JVD or carotid bruit Chest: normal inspection of chest, chest pain not reproducible Abdomen: normal bowel sounds, soft, nontender, no hepatosplenomegaly Musculoskeletal: no cyanosis or clubbing, extremities motor strength 5/5 Skin: no rashes, warm and dry normal turgor Neurologic: PERRL, EOMI, accommodation nl, no face palsy, no dysarthria CN's II-XI intact bilaterally and moves all extremities Psychiatric: A+Ox3, euthymic affect Lymphatic: no cervical or axillary lymphadenopathy : Avila catheter bag on right lower extremity, draining clear yellow urine Results & Data Results & Data ([facility]) Vital Signs (Past 12 Hours) Vital Signs Temp Pulse Resp BP Pulse Ox 12/23/19 14:30 61 16 166/69 H 99 12/23/19 14:20 61 13 100 12/23/19 14:10 65 22 100 12/23/19 14:00 61 11 L 100 12/23/19 13:50 73 17 12/23/19 13:40 77 16 100 12/23/19 13:30 67 14 99 12/23/19 13:20 73 22 97 12/23/19 13:10 74 16 100 12/23/19 13:00 75 17 99 12/23/19 12:50 80 19 97 12/23/19 12:41 77 12 99 12/23/19 12:36 78 149/76 H 100 12/23/19 12:33 36.6 C 78 20 149/76 H 100 Laboratory Results Short CBC 12/23/19 Range/Units 13:00 WBC 4.85 (4.8-10.8) K/uL Hgb 11.1 L (14.0-18.0) g/dL Hct 33.1 L (42-52) % Plt Count 149 (130-400) K/uL BMP 12/23/19 13:00 Sodium 138 Potassium 4.9 Chloride 107 Carbon Dioxide 27 BUN 56 H Creatinine 2.89 H Glucose 96 Calcium 8.5 Cardiac Enzymes 12/23/19 Range/Units 13:00 Troponin I < 0.015 (0-0.045) ng/ml Liver Function 12/23/19 Range/Units 13:00 Total Bilirubin 0.4 (0.2-1) mg/dl AST 27 (15-37) U/L ALT 24 (12-78) U/L Alkaline Phosphatase 86 (45-117) U/L Albumin 3.5 (3.4-5.0) gm/dl Diagnostic Findings CXR: IMPRESSION: No active disease in the chest. Abnormal stress echo: Stress echocardiogram demonstrated stress-induced hypokinesis of the basilar posterior, inferior and inferoseptal wall which return to normal in recovery phase late. EF 55-60%, mild LA enlargement, mild LVH, Diastolic dysfunction Medications Administered Magnesium Sulfate/Dextrose (Magnesium Sulfate / D5w) 1 gm in 100 mls @ 100 mls/hr IV Q1H TATIANA Stop: 12/23/19 16:05 Last Admin: 12/23/19 14:27 Dose: 100 mls/hr Documented by: [id number] ECG Rate (beats per minute): 90 Rhythm: normal sinus Code Status & VTE Plan Code Status Full Code VTE Prophylaxis Plan VTE Prophylaxis will be ordered: Yes Supervising Physician Co-Signing Physician Notes I saw this patient with the physician assistant restaurant general manager, I participated in the history, physical, review of systems, and physical exam. I reviewed the medications with the patient and the physician assistant restaurant general manager and helped reconcile the medications. I helped take a detailed family and social history as well. I formulated the assessment and plan personally with the physician assistant restaurant general manager and went over it with the patient. Physical Exam Gen-AAO x 3, NAD, Afebrile Head-NCAT, EOMI, PERRLA, Anicteric Sclera, No Posterior Pharyngeal Erythema Neck-Supple, No JVD, No Thyromegaly, No Masses, No LAD, No Bruits Lungs-Clear to Auscultation Bilaterally, No Rales, No Rhonchi, No Wheezing, No Crepitus Chest-No S4, +S1, +S2, No S3, No Murmurs, No Rubs, No Gallops, No Ectopy Abdomen-Soft, Bowel Sounds Present, Non Tender, Non Distended, No Hepatomegaly, No Splenomegaly, No Palpable Masses, No Rebound, No Rigidity, No Guarding Musculoskeletal-Full Range of Motion Bilaterally, No CVAT Extremities-No Cyanosis, No Clubbing, No Edema Nuero-Cranial Nerves II-XII grossly intact, Motor WNL, DTRs WNL, Strength WNL, Non Focal Psych-Normal Mood
[2019-12-23] MEDS: ISOSORBIDE MONO EXTENDED REL 30 MG TABCR PO SCH (15:55)
[2019-12-23 16:15] LABS: Magnesium 1.5 mg/dl (1.8-2.4); Troponin I < 0.015 ng/ml (0-0.045)
--- NOTE | 2019-12-23 16:22 | Electrocardiogram Report ---
Test Reason : Blood Pressure : / mmHG Vent. Rate : 080 BPM Atrial Rate : 080 BPM P-R Int : 206 ms QRS Dur : 084 ms QT Int : 358 ms P-R-T Axes : 036 005 048 degrees QTc Int : 412 ms Normal sinus rhythm Possible Inferior infarct , age undetermined Possible Anterior infarct , age undetermined Abnormal ECG When compared with ECG of 09-OCT-2018 21:45, No significant change was found Confirmed by Bill Avalos ([id number]) on 12/23/2019 4:22:03 PM Referred By: REFERRED SELF Confirmed By:Bill Avalos
[2019-12-23] MEDS ORDERED: CARBOHYDRATES FOR HYPOGLYCEMIA PO PRN (17:59)
[2019-12-23] MEDS ORDERED: ACETAMINOPHEN 325 MG TAB PO PRN (17:59)
[2019-12-23] MEDS ORDERED: GLUCOSE 10 TABS/TUBE PO PRN (17:59)
[2019-12-23] MEDS ORDERED: GLUCAGON FOR INJ 1 MG VIAL SQ PRN (17:59)
[2019-12-23] MEDS ORDERED: GLUCOSE 40% GEL 15 GM TUBE PO PRN (17:59)
[2019-12-23] MEDS ORDERED: POLYETHYLENE (MIRALAX) 17 GM PACK PO PRN (17:59)
[2019-12-23] MEDS ORDERED: ONDANSETRON INJ 2 MG/ML 2 ML VIAL IV PRN (17:59)
[2019-12-23] MEDS ORDERED: ACETAMINOPHEN 500 MG TAB PO PRN (17:59)
[2019-12-23] MEDS ORDERED: DEXTROSE 50% 50 ML SYRINGE IV PRN (17:59)
[2019-12-23] MEDS ORDERED: NovoLIN-R INSULIN PER UNIT CHARGE ONE (21:00)
[2019-12-23] MEDS ORDERED: ATORVASTATIN 40 MG TAB PO SCH (21:00)
[2019-12-23] MEDS ORDERED: INSULIN ASPART PER UNIT ONE (21:01)
[2019-12-23] MEDS: INSULIN ASPART 100 UNITS/ML 3 ML PEN SC SCH ×3 (21:24→21:41)
[2019-12-23] MEDS: INSULIN GLARGINE SOLOSTAR 100 UNITS/ML 3 ML PEN SC SCH (21:25)
[2019-12-23] MEDS: HEPARIN SOD 5,000 UNIT/0.5 ML VIAL SQ SCH (22:38)
[2019-12-24 05:17] LABS: Hematocrit (blood only) 32.6 % (42-52); Mean Corpuscular Hemoglobin 31.4 pg (25-34); Mean Corpuscular Hgb Conc 33.7 g/dL (32-36); Mean Corpuscular Volume 93.1 fL (80-100); Mean Platelet Volume 10.2 fL (7.4-10.4); Platelet Count 144 K/uL (130-400); RDW Coefficient of Variation 13.7 % (11.5-14.5); RDW Standard Deviation 46.5 fL (36.4-46.3); White Blood Count 5.84 K/uL (4.8-10.8)
[2019-12-24 05:45] LABS: BUN Creatinine Ratio 20.1 (10-20); Calcium 8.8 mg/dl (8.5-10.1); Creatinine Clr Calc Pharmacy 25.8 ml/min; Est GFR (African American) 24.8; Est GFR (Non-African American) 21.4; Magnesium 1.9 mg/dl (1.8-2.4); Potassium 4.6 mmol/L (3.5-5.1)
[2019-12-24] MEDS: HEPARIN SOD 5,000 UNIT/0.5 ML VIAL SQ SCH (05:57)
[2019-12-24] MEDS: INSULIN ASPART 100 UNITS/ML 3 ML PEN SC SCH ×2 (07:32→12:01)
[2019-12-24 07:34] LABS: Estimated Average Glucose 157 mg/dl; Hemoglobin A1C 7.1 % (4.5-5.6)
[2019-12-24] MEDS: INSULIN GLARGINE SOLOSTAR 100 UNITS/ML 3 ML PEN SC SCH (08:33)
[2019-12-24] MEDS ORDERED: CHOLECALCIFEROL 1,000 UNITS 25 MCG TAB PO SCH (09:00)
[2019-12-24] MEDS ORDERED: METOPROLOL SUCC 50MG EXT REL TAB PO SCH (09:00)
[2019-12-24] MEDS ORDERED: ASPIRIN 81 MG ECTAB PO SCH (09:00)
[2019-12-24] MEDS ORDERED: FUROSEMIDE 40 MG TAB PO SCH (09:00)
[2019-12-24] MEDS ORDERED: PANTOprazole 40 MG TAB PO SCH (09:00)
[2019-12-24] MEDS: ISOSORBIDE MONO EXTENDED REL 30 MG TABCR PO SCH (09:22)
--- NOTE | 2019-12-24 11:26 | Cardiology Progress Note ---
Date of Service December 24, 2019 Assessment & Plan (1) Abnormal dobutamine stress echocardiogram: Patient is 79-year-old male with multiple cardiovascular risk factors who was referred for stress testing the setting of increasing anginal symptoms at lower thresholds and at rest. Stress test was markedly positive and inferior posterior and inferoseptal distribution with severe chest pain induced by study and extended ST segment abnormalities lasting 15 minutes post procedure. Patient is on appropriate dose of beta-matilda troponins are elevated this morning to a slight degree. As per discussion day prior patient will likely require coronary angiography though at elevated risk given underlying significant renal insufficiency Risk versus benefit of invasive diagnostic cardiac catheterization discussed at length. Patient understands that proceeding with heart catheterization may re sult in need for permanent hemodialysis. Recommend transfer to [facility] for high risk procedure Will increase nitrate dosing Will order heparin infusion in interim given elevated troponin, recurrent sympt oms this morning (2) Exertional angina: (3) CKD (chronic kidney disease) stage 4, GFR 15-29 ml/min: (4) DM type 2 (diabetes mellitus, type 2): Admission and Anticipated Discharge Date Admission Date: December 23, 2019 Subjective Patient was seen and examined, chart, medications, telemetry reviewed. Patient notes experiencing an episode of chest heaviness earlier this morning consistent with past symptoms. Troponins are mildly elevated Blood pressure still elevated Review of Systems Review of Systems: All systems reviewed & are unremarkable except as noted in HPI & below Physical Exam Constitutional: WD/WN, vitals as above Eyes: PERRL, conjunctivae normal, anicteric sclerae ENMT: external ear and nose normal, oropharynx normal Neck: trachea midline, no thyromegaly Respiratory: normal respiratory effort, lungs clear to auscultation Cardiovascular: Rate/Rhythm: regular rate and regular rhythm Heart Sounds: normal S1 and normal S2; no gallop and no murmur Palpation: normal PMI Vessels: normal carotid upstroke and radial pulses present; no JVD and no carotid bruit Extremities: + AV fistula (Left arm); no edema Gastrointestinal (Abdomen): normal bowel sounds, soft, nontender, no hepatosplenomegaly Musculoskeletal: no cyanosis or clubbing, extremities motor strength 5/5 Skin: no rashes, warm and dry Neurologic: PERRL, EOMI, accommodation nl, no face palsy, no dysarthria Psychiatric: A+Ox3, euthymic affect Results & Data ([place]) Vital Signs (Past 12 Hours) Vital Signs Temp Pulse Resp BP Pulse Ox 12/24/19 10:08 54 L 20 167/70 H 99 12/24/19 09:32 36.6 C 49 L 20 163/63 H 99 12/24/19 08:18 48 L 20 160/61 H 95 12/24/19 07:13 45 L 18 147/69 H 95 12/24/19 05:57 48 L 19 160/70 H 98 12/24/19 01:59 46 L 17 159/75 H 99 Laboratory Results Laboratory Results - last 24 hr 12/23/19 12/23/19 12/23/19 13:00 13:00 13:00 WBC 4.85 RBC 3.58 L Hgb 11.1 L Hct 33.1 L MCV 92.5 MCH 31.0 MCHC 33.5 RDW Std Deviation 45.5 RDW Coeff of Jan 13.5 Plt Count 149 MPV 10.6 H Immature Gran % (Auto) 0.4 Neut % (Auto) 77.9 Lymph % (Auto) 13.0 [place] % (Auto) 6.0 Eos % (Auto) 2.5 Baso % (Auto) 0.2 Neut # (Auto) 3.78 Lymph # (Auto) 0.63 L [place] # (Auto) 0.29 Eos # (Auto) 0.12 Baso # (Auto) 0.01 Immature Gran # (Auto) 0.02 PT 11.7 INR 1.1 Sodium 138 Potassium 4.9 Chloride 107 Carbon Dioxide 27 Anion Gap 5.0 BUN 56 H Creatinine 2.89 H Est Cr Clr Drug Dosing 24.4 Est GFR ( Amer) 23.2 Est GFR (Non-Af Amer) 20.0 BUN/Creatinine Ratio 19.4 Glucose 96 POC Glucose Estimat Average Glucose Hemoglobin A1c Calcium 8.5 Magnesium 1.5 L Total Bilirubin 0.4 AST 27 ALT 24 Alkaline Phosphatase 86 Troponin I < 0.015 Total Protein 7.1 Albumin 3.5 Globulin 3.6 Albumin/Globulin Ratio 1.0 Triglycerides Cholesterol LDL Cholesterol, Calc VLDL Cholesterol, Calc HDL Cholesterol Cholesterol/HDL Ratio Lipase 299 12/23/19 12/23/19 12/23/19 13:00 20:52 22:35 WBC RBC Hgb Hct MCV MCH MCHC RDW Std Deviation RDW Coeff of Jan Plt Count MPV Immature Gran % (Auto) Neut % (Auto) Lymph % (Auto) [place] % (Auto) Eos % (Auto) Baso % (Auto) Neut # (Auto) Lymph # (Auto) [place] # (Auto) Eos # (Auto) Baso # (Auto) Immature Gran # (Auto) PT INR Sodium Potassium Chloride Carbon Dioxide Anion Gap BUN Creatinine Est Cr Clr Drug Dosing Est GFR ( Amer) Est GFR (Non-Af Amer) BUN/Creatinine Ratio Glucose POC Glucose 123 H 165 H Estimat Average Glucose Hemoglobin A1c Calcium Magnesium 1.5 L Total Bilirubin AST ALT Alkaline Phosphatase Troponin I < 0.015 Total Protein Albumin Globulin Albumin/Globulin Ratio Triglycerides Cholesterol LDL Cholesterol, Calc VLDL Cholesterol, Calc HDL Cholesterol Cholesterol/HDL Ratio Lipase 12/24/19 12/24/19 12/24/19 00:32 05:02 05:02 WBC 5.84 RBC 3.50 L Hgb 11.0 L Hct 32.6 L MCV 93.1 MCH 31.4 MCHC 33.7 RDW Std Deviation 46.5 H RDW Coeff of Jan 13.7 Plt Count 144 MPV 10.2 Immature Gran % (Auto) Neut % (Auto) Lymph % (Auto) [place] % (Auto) Eos % (Auto) Baso % (Auto) Neut # (Auto) Lymph # (Auto) [place] # (Auto) Eos # (Auto) Baso # (Auto) Immature Gran # (Auto) PT INR Sodium 139 Potassium 4.6 Chloride 108 H Carbon Dioxide 26 Anion Gap 5.0 BUN 55 H Creatinine 2.74 H Est Cr Clr Drug Dosing 25.8 Est GFR ( Amer) 24.8 Est GFR (Non-Af Amer) 21.4 BUN/Creatinine Ratio 20.1 H Glucose 138 H POC Glucose Estimat Average Glucose Hemoglobin A1c Calcium 8.8 Magnesium 1.9 Total Bilirubin AST ALT Alkaline Phosphatase Troponin I 0.051 H* Total Protein Albumin Globulin Albumin/Globulin Ratio Triglycerides 136 Cholesterol 113 LDL Cholesterol, Calc 50 VLDL Cholesterol, Calc 27 HDL Cholesterol 36 Cholesterol/HDL Ratio 3 Lipase 12/24/19 12/24/19 05:02 07:22 WBC RBC Hgb Hct MCV MCH MCHC RDW Std Deviation RDW Coeff of Jan Plt Count MPV Immature Gran % (Auto) Neut % (Auto) Lymph % (Auto) [place] % (Auto) Eos % (Auto) Baso % (Auto) Neut # (Auto) Lymph # (Auto) [place] # (Auto) Eos # (Auto) Baso # (Auto) Immature Gran # (Auto) PT INR Sodium Potassium Chloride Carbon Dioxide Anion Gap BUN Creatinine Est Cr Clr Drug Dosing Est GFR ( Amer) Est GFR (Non-Af Amer) BUN/Creatinine Ratio Glucose POC Glucose 117 H Estimat Average Glucose 157 Hemoglobin A1c 7.1 H Calcium Magnesium Total Bilirubin AST ALT Alkaline Phosphatase Troponin I Total Protein Albumin Globulin Albumin/Globulin Ratio Triglycerides Cholesterol LDL Cholesterol, Calc VLDL Cholesterol, Calc HDL Cholesterol Cholesterol/HDL Ratio Lipase
[2019-12-24] MEDS: Heparin IV Low Dose WITH Bolus IV SCH ×4 (11:45→12:27)
[2019-12-24] MEDS ORDERED: NITROGLYCERIN 2% OINTMENT 30GM TUBE EXT SCH (12:00)
--- NOTE | 2019-12-24 12:01 | Hospitalist Progress Note ---
Date of Service December 24, 2019 Assessment & Plan (1) Exertional angina: (2) Abnormal dobutamine stress echocardiogram: Patient is a 79 yr male with H/O DM II with diabetic nephropathy and retinopathy, CKD stage IV with mature left upper extremity AV fistula in place, HTN, HLD, chronic HFpEF, PVD, BPH with chronic bladder obstruction and chronic Avila catheter in place, macular degeneration, anemia of chronic disease who presents to ED secondary to abnormal stress echo outpatient prior to arrival. Abnormal dobutamine stress ECHO Unstable Angina/NSTEMI Echo was markedly posterior--inferior, posterior and inferoseptal distribution, with severe chest pain induced by study and extended ST segment abnormalities lasting 15 minutes post procedure Needs high risk cardiac catheterization and patient may need permanent dialysis Discussed with patient in detail--patient agrees to be on dialysis if required Started on IV heparin Continue aspirin, Lipitor, Imdur, metoprolol Patient is planned to be transferred to [facility] for further management Accepting physician Jacinto Longo --Cardiology (3) Hypomagnesemia: Replete electrolytes as needed Monitor (4) DM type 2 (diabetes mellitus, type 2): Last A1c 7.1 on 12/24/19 Hold pioglitazone and glipizide Lantus/NovoLog per protocol Given history of HFpEF would advise discontinuing pioglitazone (5) Chronic heart failure with preserved ejection fraction (HFpEF): EF 55-60%, cardiology on board continue lasix, metoprolol daily weights, strict I and O Euvolemic currently (6) CKD (chronic kidney disease) stage 4, GFR 15-29 ml/min: baseline cr 2.7-2.8 follows [facility] nephro, has mature AVF in place LUE daily weights, strict I and O monitor renal function (7) HTN (hypertension): Blood pressure slightly elevated Continue metoprolol Imdur added (8) HLD (hyperlipidemia): continue statin (9) Chronic indwelling Avila catheter: 2/2 to chronic bladder outlet obstruction, follows urology changed 15 days ago daily avila care (10) DVT prophylaxis: IV Heparin Disposition: [facility] Admission and Anticipated Discharge Date Admission Date: December 23, 2019 Subjective Patient is seen and examined at bedside Complains of minimal left-sided chest pain Discussed with cardiology today Denies shortness of breath, dizziness, nausea, abdominal pain Plan to be transferred to [facility] for high risk cardiac cath eterization Accepting physician Jacinto Medrano Cardiology Started on IV Heparin Review of Systems Review of Systems: All systems reviewed & are unremarkable except as noted in HPI & below Physical Exam Physical Exam: Physical Exam: Vitals signs as noted above General Appearance:Moderately built and nourished, no apparent distress Head: normocephalic, Atraumatic Eyes: normal inspection, EOMI Neck: supple, Trachea midline Respiratory/Chest: Normal breath sounds, CTA Cardiovascular: S1, S2, No murmur, +Bradycardia Abdomen/GI:Soft, Non tender, Bowel sounds present +Catheter Extremities/Musculoskelatal:normal inspection, no edema, L UE AV Fistula Neurologic/Psych:AAOX3, grossly no focal neurological deficits Skin: normal color, warm Results & Data Results & Data ([facility]) Vital Signs (Past 12 Hours) Vital Signs Temp Pulse Resp BP Pulse Ox 12/24/19 10:08 54 L 20 167/70 H 99 12/24/19 09:32 36.6 C 49 L 20 163/63 H 99 12/24/19 08:18 48 L 20 160/61 H 95 12/24/19 07:13 45 L 18 147/69 H 95 12/24/19 05:57 48 L 19 160/70 H 98 12/24/19 01:59 46 L 17 159/75 H 99 Laboratory Results Short CBC 12/23/19 12/24/19 Range/Units 13:00 05:02 WBC 4.85 5.84 (4.8-10.8) K/uL Hgb 11.1 L 11.0 L (14.0-18.0) g/dL Hct 33.1 L 32.6 L (42-52) % Plt Count 149 144 (130-400) K/uL BMP 12/23/19 12/24/19 13:00 05:02 Sodium 138 139 Potassium 4.9 4.6 Chloride 107 108 H Carbon Dioxide 27 26 BUN 56 H 55 H Creatinine 2.89 H 2.74 H Glucose 96 138 H Calcium 8.5 8.8 Cardiac Enzymes 12/23/19 12/23/19 12/24/19 Range/Units 13:00 13:00 00:32 Troponin I < 0.015 < 0.015 0.051 H* (0-0.045) ng/ml Liver Function 12/23/19 Range/Units 13:00 Total Bilirubin 0.4 (0.2-1) mg/dl AST 27 (15-37) U/L ALT 24 (12-78) U/L Alkaline Phosphatase 86 (45-117) U/L Albumin 3.5 (3.4-5.0) gm/dl
--- NOTE | 2019-12-24 12:18 | Discharge Summary ---
Date of Service December 24, 2019 Admission HPI Per Admitting Provider This is a pleasant 79-year-old male who has significant past medical history of T2DM with diabetic nephropathy and retinopathy, CKD stage IV with mature left upper extremity AV fistula in place, CAD, HTN, HLD, chronic HFpEF, PVD, BPH with chronic bladder obstruction and chronic Avila catheter in place, macular degeneration, anemia of chronic disease who presents to ED secondary to abnormal stress echo outpatient prior to arrival. Over the course the last 2 to 3 months patient has been experiencing exertional substernal chest discomfort that would last 1 to 2 minutes and resolve with resting. He had no other symptoms including shortness of breath, diaphoresis, nausea, vomiting, dizziness or presyncope. Due to risk factors he was referred to cardiology for further evaluation. There was concern for ischemia versus uremic pericarditis given the nature of symptoms. He was referred for stress echocardiogram which was performed today, 12/23/[address] Samaniego. With dobutamine stress he had EKG changes lasting greater than 10 minutes post procedure. Imaging revealed stress-induced hypokinesis of basilar and posterior inferior and inferior septal velez that did resolve after rest. He required IV metoprolol 10 mg x 2 as well as a sublingual nitro x2 with improvement of symptoms. He was referred to ED for admission and further work-up. Currently he feels well and denies any current chest pain. He further denies any recent illness, fever, chills, sweats, lightheadedness, dizziness, syncope, palpitations, shortness breath, cough, hemoptysis, nausea, vomiting, abdominal pain. He does have a Avila catheter in place which was changed approximately 15 days ago. He gets it changed every 30 days and follows with urology every 6 months. He manages the bag himself. His bowels are moving without difficulty and denies melena or hematochezia. He lives alone and does occasionally use assist device for ambulation. His in March 2019. He has been compliant with his medications. In ED patient made hemodynamically stable. Labs notable for elevated BUN and creatinine 56 and 2.89, mag 1.5, H&H 11.1 and 33.1, EKG with normal sinus rhythm [address] or T wave changes. Chest x-ray negative for acute cardiopulmonary abnormality. He was seen and evaluated by cardiology in ED. Recommendation is for inpatient evaluation and possible transfer to [facility] [place] [facility] secondary to complicated diagnostic cardiac catheterization in setting of CKD stage IV. Admission Exam Per Admitting Provider Physical Exam Physical Exam: Constitutional: WD/WN, alert, male, vitals as above, NAD, sitting up in bed, pleasant, conversing easily Head: Normocephalic, Atraumatic Eyes: PERRL, conjunctivae normal, anicteric sclerae ENMT: external ear and nose normal, oropharynx normal Neck: trachea midline, no thyromegaly normal visual inspection Respiratory: normal respiratory effort, lungs clear to auscultation, no wheeze, rales, rhonchi. Normal insp/exp effort, no accessory muscle use Cardiovascular: RRR, no murmur, trace pedal edema, Vessels: no JVD or carotid bruit Chest: normal inspection of chest, chest pain not reproducible Abdomen: normal bowel sounds, soft, nontender, no hepatosplenomegaly Musculoskeletal: no cyanosis or clubbing, extremities motor strength 5/5 Skin: no rashes, warm and dry normal turgor Neurologic: PERRL, EOMI, accommodation nl, no face palsy, no dysarthria CN's II-XI intact bilaterally and moves all extremities Psychiatric: A+Ox3, euthymic affect Lymphatic: no cervical or axillary lymphadenopathy : Avila catheter bag on right lower extremity, draining clear yellow urine Principal Diagnosis Unstable Angina/NSTEMI Discharge Data Allergies Allergy/AdvReac Type Severity Reaction Status Date / Time No Known Allergies Allergy Verified 12/23/19 15:14 Consultations 12/23/19 14:41 ED Decision to Admit Stat 12/23/19 15:14 Consult Cardiology Routine Procedures Performed CXR:No active disease in the chest. Hospital Course (1) Exertional angina: (2) Abnormal dobutamine stress echocardiogram: Patient is a 79 yr male with H/O DM II with diabetic nephropathy and retinopathy, CKD stage IV with mature left upper extremity AV fistula in place, HTN, HLD, chronic HFpEF, PVD, BPH with chronic bladder obstruction and chronic Avila catheter in place, macular degeneration, anemia of chronic disease who presents to ED secondary to abnormal stress echo outpatient prior to arrival. Abnormal dobutamine stress ECHO Unstable Angina/NSTEMI Echo was markedly posterior--inferior, posterior and inferoseptal distribution, with severe chest pain induced by study and extended ST segment abnormalities lasting 15 minutes post procedure Needs high risk cardiac catheterization and patient may need permanent dialysis Discussed with patient in detail--patient agrees to be on dialysis if required Started on IV heparin Continue aspirin, Lipitor, Imdur, metoprolol Patient is planned to be transferred to [facility] for further management Accepting physician Jacinto Longo --Cardiology (3) Hypomagnesemia: Replete electrolytes as needed Monitor (4) DM type 2 (diabetes mellitus, type 2): Last A1c 7.1 on 12/24/19 Hold pioglitazone and glipizide Lantus/NovoLog per protocol Given history of HFpEF would advise discontinuing pioglitazone (5) Chronic heart failure with preserved ejection fraction (HFpEF): EF 55-60%, cardiology on board continue lasix, metoprolol daily weights, strict I and O Euvolemic currently (6) CKD (chronic kidney disease) stage 4, GFR 15-29 ml/min: baseline cr 2.7-2.8 follows [facility] nephro, has mature AVF in place LUE daily weights, strict I and O monitor renal function (7) HTN (hypertension): Blood pressure slightly elevated Continue metoprolol Imdur added (8) HLD (hyperlipidemia): continue statin (9) Chronic indwelling Avila catheter: 2/2 to chronic bladder outlet obstruction, follows urology changed 15 days ago daily avila care (10) DVT prophylaxis: IV Heparin Disposition: [facility] Total Time Total Time Spent Total Time Spent (In Minutes): 45 minutes Discharge Plan Discharge Items Patient Disposition: Transfer Acute Care Hospital Reason For Visit: FAILED OUTPT STRESS ECHO Discharge Diagnosis: Unstable Angina/NSTEMI Activity: Per Instructions section Exercise/Sports: Wait until after follow-up appointment Non-emergency contact: Primary Care Provider and Set Painter Call non-emergency contact if: you have any medication questions, your symptoms worsen, your pain is not controlled, your pain is worsening, your pain is unusual for you, your pain is concerning for you and you have a fever Follow-up/Referrals: PCP,NO [Primary Care Provider] - Diet: Carb Consistent or DM2 and Heart Healthy Addtl Attending Provider Instructions: Follow-up with Jacinto Longo Cardiology, at [facility] for high risk cardiac catheterization and further management Seek immediate medical attention if your symptoms reoccur or worsen Pending Studies at Discharge: No Stand-Alone Forms: My [facility] Skilled Items Patient informed of condition?: Yes DNR: No Discharge Level of Care: Other Communicable Disease: No Discharge Prognosis: Stable Lines: Peripheral IV Urinary Catheter: Yes Medications and DC Order Prescriptions: New isosorbide mononitrate 30 mg Tablet Extended Release 24 Hr 30 mg PO QAM Qty: 0 RF: 0 Heparin Iv Low Dose With Bolus 1 dose IV Q15M Qty: 0 RF: 0 Nitro-Bid 2 % Ointment 1 inch EXT Q6H Qty: 0 RF: 0 Continued glipizide 10 mg Tablet 10 mg PO DAILY RF: 0 pioglitazone 45 mg Tablet 45 mg PO HS RF: 0 pantoprazole 40 mg Tablet,Delayed Release (Dr/Ec) 40 mg PO QAM RF: 0 cholecalciferol (vitamin D3) [Vitamin D3] 2,000 unit Capsule 2,000 unit PO DAILY RF: 0 furosemide [Lasix] 40 mg Tablet 40 mg PO DAILY RF: 0 metoprolol succinate 100 mg tablet extended release 24 hr 100 mg PO DAILY RF: 0 aspirin 81 mg Tablet,Delayed Release (Dr/Ec) 81 mg PO DAILY RF: 0 acetaminophen [Tylenol Extra Strength] 500 mg Tablet 1,000 mg PO Q8H PRN (Reason: Pain) RF: 0 Changed atorvastatin 20 mg Tablet 40 mg PO HS Qty: 0 RF: 0 Discharge Orders: Discharge Order (Routine); Ordered 12/24/19 Ordered By: Goldy Gardner/Other Patient Handouts: Managing Type 2 Diabetes Admission Data Admit Date/Time: 12/23/19 14:46 Attending Provider: Goldy Fernandez Admit Provider: Rohith Bradford Primary Care Provider: PCP,NO Other Providers: Rohith Bradford ; Isaias Garrett
[2019-12-24] MEDS ORDERED: HEPARIN SODIUM/DEXTROSE 25,000 UNITS/500 ML BAG IV SCH (12:30)
[2019-12-24] MEDS ORDERED: HEPARIN IV BOLUS 4,000 UNITS in SYRINGE 0 ML IV ONE (12:45)
--- NOTE | 2019-12-24 13:14 | Electrocardiogram Report ---
Test Reason : Blood Pressure : / mmHG Vent. Rate : 047 BPM Atrial Rate : 047 BPM P-R Int : 246 ms QRS Dur : 084 ms QT Int : 418 ms P-R-T Axes : 040 019 043 degrees QTc Int : 369 ms Sinus bradycardia with 1st degree A-V block Otherwise normal ECG When compared with ECG of 23-DEC-2019 12:33, MA interval has increased Vent. rate has decreased BY 33 BPM Borderline criteria for Inferior infarct are no longer Present Confirmed by Antonio Duarte ([id number]) on 12/24/2019 1:14:15 PM Referred By: REFERRED SELF Confirmed By:Antonio Duarte
== END 2019-12-24 15:25 | disposition short-term general hospital (02) ==
LOC: EDINP 12:27 → ED 12:27 → SUATTDRO 14:46 → 1E 12-24 11:03

== ENCOUNTER 2021-08-22 05:00 | Inpatient (IN) ==
--- NOTE | 2021-08-15 11:13 | Anesthesiology Consultation ---
Date of Service August 15, 2021 Assessment & Plan (1) Encounter for pre-operative examination: Chart Review Chart Review: Acceptable Risk for Surgery (pending preop Covid testing results ) and Patient NOT seen in Pre Admission Testing - Check BSG AM DOS -Discussed with Dr. Tony- due to nature of procedure- pt can proceed as scheduled Per nursing assessment 08/15/2021, patient denies any recent travel. No known COVID infection in the past 90 days. Patient is fully vaccinated for COVID. No known Covid positive exposures or Covid related symptoms. Preop Covid testing scheduled 08/18/21= will await results Last seen by nephrology 07/22/2021 = patient seen for follow-up on chronic kidney disease stage IV. GFR liable in the past 2 years. Worsening proteinuria in the past year for patient with chronic inflamed urine and possibly Louis use at that time. Has AVG after failed attempts for aVF. Currently thrombosed with recent scan on 07/18. Volume status improved. Diabetes uncontrolled. Recent diagnosis of cancer. We will check labs for further assessment. Advised monitoring BP. Will await further work-up of AVG until further staging and planning of care advised by oncology for colon cancer. Avoid NSAIDs which are not good for kidney patients. Follow-up in 3 months. Last seen by cardiology 06/08/2021 = Patient presents for cardiology follow-up. Multivessel CADstatus post CABG x3 December 2019. 1 interim episode of atypical epigastric discomfort aided by 2 sublingual nitroglycerin. History suggest GI etiology. Continue appropriate medical management without further evaluation at this time. Postoperative asymptomatic A. fibrisk of AC felt to be greater than benefitcontinue metoprolol. Heart failurecompensated volume status. Peripheral vascular disease. Recommend follow-up with vascular surgery. Follo w-up in 6 months. History Surgery Operation Date: 08/22/21 10:20 Proposed Procedures p Laparoscopic Transverse Colectomy Possible Open - Kelvin Walton MD Height/Weight Height: 5 ft 9 in Weight: 77.111 kg Allergies Allergy/AdvReac Type Severity Reaction Status Date / Time latex Allergy Intermediate SKIN Verified 08/15/21 10:15 BLISTERS Medications Home Medications Medication Instructions Recorded Confirmed Last Taken cholecalciferol (vitamin D3) 50 2,000 unit PO QAM 10/09/18 08/15/21 07/19/21 mcg (2,000 unit) capsule (Vitamin D3) glipizide 10 mg tablet 10 mg PO BID 10/09/18 08/15/21 07/19/21 pantoprazole 40 mg tablet,delayed 40 mg PO QAM 10/09/18 08/15/21 07/20/21 release acetaminophen 500 mg tablet 1,000 mg PO Q8H PRN 12/23/19 08/15/21 Unknown (Tylenol Extra Strength) aspirin 81 mg tablet,delayed 81 mg PO QAM 12/23/19 08/15/21 07/14/21 release ascorbic acid (vitamin C) 500 mg 500 mg PO QAM 05/30/21 08/15/21 07/19/21 tablet (Vitamin C) atorvastatin 80 mg tablet 80 mg PO QPM 05/30/21 08/15/21 07/19/21 clopidogrel 75 mg tablet 75 mg PO QAM 05/30/21 08/15/21 07/14/21 docusate sodium 100 mg capsule 100 mg PO BID PRN 05/30/21 08/15/21 07/19/21 (Colace) ferrous sulfate 325 mg (65 mg 325 mg PO Q2D 05/30/21 08/15/21 07/15/21 iron) tablet finasteride 5 mg tablet (Proscar) 5 mg PO QPM 05/30/21 08/15/21 07/19/21 fluticasone propionate 50 1 spray INTRANASAL DAILY 05/30/21 08/15/21 05/31/21 mcg/actuation nasal spray,suspension furosemide 40 mg tablet (Lasix) 40 mg PO QAM 05/30/21 08/15/21 07/19/21 metoprolol succinate 50 mg 50 mg PO QAM 05/30/21 08/15/21 07/20/21 tablet,extended release 24 hr nitroglycerin 0.4 mg sublingual 0.4 mg SUBLINGUAL UD PRN 05/30/21 08/15/21 Unknown tablet polyethylene glycol 3350 17 gram 17 g PO PM 05/30/21 08/15/21 07/20/21 oral powder packet (Miralax) linagliptin 5 mg tablet 5 mg PO QAM 07/15/21 08/15/21 07/19/21 Past Medical History Medical History (Updated 08/15/21 @ 16:09 by Sophia Eagle PA-C) Anemia Atrial fibrillation Postoperative asymptomatic a fib without recurrence- risk of AC felt to be greater than the benefit- continue metoprolol per cardio records BPH (benign prostatic hyperplasia) CAD (coronary artery disease) S/p 3 vessel CABG 12/2019 (LUCERO to the LAD, SVG to the OM, and SVG to PDA) Chronic heart failure with preserved ejection fraction (HFpEF) Chronic indwelling Louis catheter Neurogenic bladder per records CKD (chronic kidney disease) stage 4, GFR 15-29 ml/min x 12 yrs > no dialysis yet - Per nephro records- AVF placed 2017- in LUE (thrombosed)- had placement and revision of new AVF on left side 07/2018 with revision 09/2018 - AVG then placed after failed AVF- patient agrees to IHD in the event if needed -AVG thrombosed on recent scan per 07/22/21 nephro records Degenerative disc disease Diabetic retinopathy DM type 2 (diabetes mellitus, type 2) NIDDM GERD (gastroesophageal reflux disease) Hard of hearing HLD (hyperlipidemia) HTN (hypertension) Macular degeneration Myocardial Infarction 2019 PVD (peripheral vascular disease) Bilateral ICA disease (<50% stenosis to bilateral ICAs per 2019 carotid duplex) LE PAD- s/p L SFA/popliteal NEWS ANALYST, popliteal stent 6 x 80 LifeStent, and 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[employer], right 4th toe amputation Thyroid nodule Plans for biopsy in the future Past Family History Family History Father Heart disease PA @ age 77 Sister Diabetes Mother Cirrhosis Other No family history of adverse response to anesthesia Past Surgical History Surgical History Arteriovenous fistula LUE, patent (NOT USING) History of amputation LEFT FOOT TOE AMPUTATION History of cataract extraction RT/LEFT History of colonoscopy History of coronary artery bypass graft 3 VESSELS AT [place] 2019 (FOLLOWED BY JAMES JADE) History of tonsillectomy History of tonsillectomy and adenoidectomy History of tooth extraction Social History Smoking Status: Never smoker Do You Dip or Chew Tobacco: No Hx Alcohol Use: No Alcohol type: beer Hx Substance Use: No substance use type: does not use Testing Laboratory Results 08/10/21= WBC: 7.79 H/H: 11.4/33.9 PLATELETS: 188 SODIUM: 133 POTASSIUM: 4.8 CHLORIDE: 100 CO2: 24 BUN: 18 CREATININE: 1.4 (chronic elevated creatinine- improved from previous labs- creat 2.0 03/2021 and 2.5 in 05/2021) GLUCOSE: 180 03/17/21= HGB A1C: 9.6 Electrocardiogram Date: 06/08/21 SR with 1st AVB at 71bpm. Anterior infarct (cited on or before Feb 06, 2020) When compared to EKG from Mar 09, 2020- T wave inversion no longer evident in inferior leads, nonspecific T wave abnormality has replaced inverted T waves in lateral leads per cardio Chest X-Ray Date: 05/16/21 No acute cardiopulmonary process on plain film examination No mass or nodule identified. CT would be more sensitive and specific examination felt clinically indicated Echocardiogram Date: 10/15/18 EF: 55-59% LV Function: normal RWMA: + none Other Findings: no LVH Valvular Disease: + no significant valvular disease and + MR (mild) Stress Test Date: 12/23/19 Type: DSE Resting EF: 55-59% Stress Echo positive for inducible ischemia. Resting hypertension present Initially blunted heart rate response to dobutamine with rapid increase in heart rate atropine and associated acceleration of symptoms Patient experienced severe chest pain consistent with angina pectoris at peak heart rate resulting in discontinuation of dobutamine. Symptoms ultimately relieved after greater than 10 minutes with 20 mg IV metoprolol and 2 sublingual nitroglycerin. At peak infusion patient had minor ST depression in the lateral leads became significantly more pronounced with chest pain in the recovery phase ultimately developing deep T wave inversions in leads. 1, 2 and [address]VL with mild ST elevation transiently in lead III returning towards baseline after 15 minutes recovery phase LV wall motion is normal. Was stressed the inferior and inferior septal wall became severely hypokinetic. Posterior wall became hypokinetic at the base and mid level. Abnormal segments returned to normal function only recovery. (Pt had subsequent cardiac cath- see below) Cardiac Catheterization Date: 12/25/19 Ostial LMCA 50% visually and significantly by IVUS LAD midlly diseased Left circumflex moderately diseased and small OM with ostial 50-60% Mid RCA with 90% stenosis, distal RCA with 90% stenosis Recommendations: Consideration of CABG in light of significant LMCA and RCA disease (Had subsequent 3 vessel CABG) Other Testing Thyroid u/s 05/25/21= Mildly heterogeneous echotexture. Equivocal lower pole nodule (22 x 22 x 13 mm) versus heterogeneous echotexture. FNA suggested. If FNA is not performed, follow-up surveillance ultrasound is recommended. Benign left lobe spongiform nodule. Carotid duplex 12/26/2019 = less than 50% stenosis of the left and right internal carotid arteries. Antegrade flow in both vertebral arteries.
[2021-08-22] MEDS ORDERED: cefOXitin 2,000 MG in DEXTROSE 5% 50 ML IV SCH (06:00)
[2021-08-22] MEDS ORDERED: LR 15ML/HR IV SCH (06:00)
[2021-08-22] MEDS ORDERED: SODIUM CHLORIDE 0.9% 1000ML 1,000 ML IV SCH (06:00)
[2021-08-22] MEDS ORDERED: ONDANSETRON INJ 2 MG/ML 2 ML VIAL IV PRN ×2 (06:47→11:46)
[2021-08-22] MEDS ORDERED: ePHEDrine sulfate 50 MG/ML AMP IV PRN (06:47)
[2021-08-22] MEDS ORDERED: ATROPINE SULFATE 0.1 MG/ML 10ML SYR IV PRN (06:47)
[2021-08-22] MEDS ORDERED: fentaNYL citrate 100 MCG/2 ML VIAL IV PRN (06:47)
[2021-08-22] MEDS ORDERED: LIDOCAINE 2% 20 MG/ML 5 ML SYR IV ONE (06:55)
[2021-08-22] MEDS ORDERED: PROPOFOL IV EMULSION 10 MG/ML 20 ML VIAL IV ONE (06:55)
[2021-08-22] MEDS ORDERED: ROCURONIUM BROMIDE 10 MG/ML 5 ML VIAL IV ONE (06:55)
[2021-08-22] MEDS ORDERED: fentaNYL citrate 100 MCG/2 ML VIAL ONE (06:56)
[2021-08-22] MEDS ORDERED: BUPIVACAINE 0.5 % 5 MG/1 ML MPF 30ML VIAL ONE (07:03)
--- NOTE | 2021-08-22 07:09 | History & Physical Bridge Note ---
Date of Service August 22, 2021 History & Physical Bridge Note I have examined the patient, reviewed the History & Physical and in the interval since the performance of the History & Physical I have noted the following changes of clinical significance: no changes noted
[2021-08-22] MEDS ORDERED: NEOSTIGMINE METHYLSULFATE 1 MG/ML 10ML VIAL ONE (08:46)
[2021-08-22] MEDS ORDERED: ONDANSETRON INJ 2 MG/ML 2 ML VIAL ONE (08:46)
[2021-08-22] MEDS ORDERED: GLYCOPYRROLATE 0.2 MG/ML VIAL ONE (08:46)
[2021-08-22] MEDS ORDERED: DEXAMETHASONE SOD INJ 4 MG/ML VIAL ONE (08:46)
[2021-08-22] MEDS ORDERED: PHENYLEPHRINE 100MCG/ML 5ML SYR ONE (08:46)
[2021-08-22] MEDS ORDERED: PHENYLEPHRINE HCL 10 MG/ML VIAL ONE ×2 (08:46→08:58)
[2021-08-22] MEDS ORDERED: LABETALOL HCL IV 5 MG/ML 20ML IV ONE ×2 (09:28)
--- NOTE | 2021-08-22 09:31 | Post Operative Brief Note ---
Immediate Post Op Note v1 Date of Surgery August 22, 2021 Pre & Post Diagnosis Operation Date: 08/22/21 07:15 Pre-Op Diagnosis: Colonic Mass Post-Op Diagnosis: Colonic Mass I identified the patient and participated in the time-out.: Yes Procedure Operation Date: 08/22/21 07:15 Actual Procedures p Laparoscopic Assisted Transverse Colectomy - Kelvin Walton MD Surgeon Kelvin Walton MD Chief Nursing Executive HOMERO Perkins assisted with tissue retraction, camera op, closure Estimated Blood Loss 10 Findings Consistent with Post-Op Diagnosis Drains Louis Catheter (present upon admission, draining clear yellow urine. Anesthesia to monitor output throughout case. )
--- NOTE | 2021-08-22 09:36 | Operative Report ---
Post Operative Report Pre & Post Diagnosis Operation Date: 08/22/21 07:15 Pre-Op Diagnosis: Colonic Mass Post-Op Diagnosis: Colonic Mass I identified the patient and participated in the time-out.: Yes Procedure Operation Date: 08/22/21 07:15 Actual Procedures p Laparoscopic Assisted Transverse Colectomy - Kelvin Walton MD Surgeon Kelvin Walton MD Customer Services Supervisor HOMERO Perkins assisted with tissue retraction, camera op, closure Estimated Blood Loss 10 Findings Consistent with Post-Op Diagnosis Tattoo noted in the mid transverse colon Specimens Transverse colon with mesentery Anesthesia Type General Complications No immediate complications Description of Procedure Patient was taken to the operating room, placed supine on the operating table. A timeout was performed, perioperative antibiotics were administered, SCD boots were placed. After adequate anesthesia and analgesia was obtained, a Louis catheter was placed, and the patient was prepped and draped in the normal sterile fashion. Incision was made in the supraumbilical region carried down to the level of the fascia. The fascia was grasped with a trach hook, and the varies needle was used to enter the abdominal cavity. The abdomen was insufflated to pressure 15 mmHg, at 10 mm trocar was placed. A 10 mm 30 degree laparoscope was placed into the abdominal cavity, and the abdomen was surveyed. A 5 mm trocar was placed in the left upper quadrant as well as in the right upper quadrant under direct visualization. The omentum was lifted and the tattoo was identified in the mid transverse colon. Another 5 mm trochars placed on the right side. Using the harmonic scalpel, I was able to detach the omentum from the transverse colon, entering the lesser sac. This was carried out proximally to the right hepatic flexure, and distally to the left hepatic fle xure. There was significant length of transverse colon, and it was deemed that the flexure did not need to be mobilized. The colon was then lifted and the mesentery was examined. The middle colic artery pedicle was identified and dissected and skeletonized circumferentially with harmonic scalpel. This pedicle was taken with a vascular load of the Endo JEFFREY stapler. At this point, there was excellent mobility of the colon, and the pedicle was taken, the decision was made to make a small upper midline incision. Upper midline incision was made, and a wound protector was placed. The transver se colon was grasped and retracted into the wound. Sites were selected proximally and distally on the colon and were transected with the JEFFREY stapler. The mesentery was taken with the LigaSure device. The specimen was sent off field for pathology. A [id number] functional end-to-end anastomosis was created using a JEFFREY stapler and a TA stapler. The resulting mesenteric defect was reapproximated with 3-0 silk suture. There was no tension on the anastomosis when was lying in the anatomical position. Attention was turned hemostasis, which was excellent. The wound was copiously irrigated suctioned free, again hemostasis was checked and attention was excellent. The fascia was closed with a running #1 PDS suture. Skin was closed with surgical clips. Dressings were applied. He tolerated the procedure without complication, transferred in stable condition to the PACU. All instrument, needle, and sponge counts were correct at the end of the case. My junior administrative assistant was necessary throughout the procedure for tissue retraction, possible camera operation, and closure of the wounds. I understand that section 1842(b)(7)(D) of the Social Security act generally prohibits Medicare physician fee schedule payment for the services of assistants at surgery in teaching hospitals when qualified residents are available to furnish such services. I certify that the services for which payment is claimed were medically necessary and that no qualified resident was available to perform the services. I further understand that these services are subject to postpayment review by the Medicare carrier. I attest to the content of the Intraoperative Record and any orders documented therein. Any exceptions are noted below.
--- NOTE | 2021-08-22 10:48 | Anesthesiology Progress Note ---
Date of Service August 22, 2021 Anesthesia Post Procedure Vital Signs Vital Signs: Temp Pulse Pulse Resp BP Pulse Ox 08/22/21 10:45 56 L 14 156/63 H 93 08/22/21 10:30 57 L 14 166/63 H 92 08/22/21 10:20 97.3 F L 56 L 14 175/65 H 92 08/22/21 10:10 59 L 14 182/68 H 92 08/22/21 10:00 64 14 182/73 H 94 08/22/21 09:50 66 14 185/77 H 96 08/22/21 09:43 97.3 F L 76 14 183/74 H 95 08/22/21 06:02 97.9 F 75 18 192/75 H 100 Transfer of Care Handoff Completed per policy Notes Mental Status: alert / awake / arousable and participated in evaluation Patient Amnestic to Procedure: Yes Nausea / Vomiting: adequately controlled Pain: adequately controlled Airway Patency, RR, SpO2: stable & adequate BP & HR: stable & adequate Hydration State: stable & adequate Anesthetic Complications: no major complications apparent and Pt Satisfied with anesthetic care
[2021-08-22] MEDS ORDERED: KETOROLAC TROMETHAMINE 15 MG/ML VIAL IV PRN (11:46)
[2021-08-22] MEDS ORDERED: PROMETHAZINE HCL 12.5 MG in SODIUM CHLORIDE 0.9% 50 ML IV PRN (11:46)
[2021-08-22] MEDS ORDERED: diphenhydrAMINE Capsule 25 MG CAP PO PRN (11:46)
[2021-08-22] MEDS ORDERED: GLUCAGON FOR INJ 1 MG VIAL SQ PRN (12:44)
[2021-08-22] MEDS ORDERED: DEXTROSE 50% 50 ML SYRINGE IV PRN (12:44)
[2021-08-22] MEDS ORDERED: GLUCOSE 10 TAB/TUBE PO PRN (12:44)
[2021-08-22] MEDS ORDERED: GLUCOSE 40% GEL 15 GM TUBE PO PRN (12:44)
[2021-08-22] MEDS ORDERED: CARBOHYDRATES FOR HYPOGLYCEMIA PO PRN (12:44)
[2021-08-22] MEDS: LACTATED RINGER'S 1,000 ML IV SCH (13:05)
--- NOTE | 2021-08-22 13:39 | Hospitalist Consultation ---
Date of Consultation August 22, 2021 Assessment & Plan (1) Status post partial colectomy: POD #0 laparoscopic-assisted transverse colectomy by Dr. Walton Patient has been having weight loss for the past 6 months and underwent colonoscopy that showed a 4 cm mass in the transverse colon. Biopsy showed adenomatous tissue however no definitive carcinoma. Patient then presented for pain procedure today. Clear liquid diet as per surgery Pain management and wound care as per general surgery (2) CAD (coronary artery disease): Appears stable, no reports of chest pain Continue beta-matilda uninterrupted Resume aspirin and Plavix at the discretion of general surgery Likely resume statin tomorrow (3) Chronic heart failure with preserved ejection fraction (HFpEF): Appears euvolemic Resume home dose of furosemide pending a.m. labs Monitor volume status closely (4) DM type 2 (diabetes mellitus, type 2): Hgb A1c 9.6 03/2021 Hold oral agents and utilize NovoLog per protocol while hospitalized Update A1c with a.m. labs (5) PVD (peripheral vascular disease): Resume aspirin and Plavix at the discretion of general surgery Resume statin tomorrow (6) Chronic indwelling Louis catheter: (7) BPH (benign prostatic hyperplasia): No acute issues Resume finasteride tomorrow (8) CKD (chronic kidney disease) stage 4, GFR 15-29 ml/min: Baseline creatinine low to mid twos however noted to be 1.4 in 08/10 Has left arm fistula in place however has not started dialysis Monitor renal functions (9) DVT prophylaxis: SQ Lovenox as per general surgery Thank you for this consultation. We will follow the patient with you during their hospital stay. You can reach a member of the [facility] Hospitalist Team 25/09 via the [facility] Hospitalist role in [place] Text. Supervising Physician Co-Signing Physician Notes Patient is a 80-year-old male with history of CKD, CHF, peripheral artery disease and other medical problems was consulted for postop medical management after having laparoscopic transverse colectomy by Dr. Walton. Patient is doing well postoperatively. Denies any chest pain, shortness of breath, dizziness, nausea. Tolerating diet. Admits to have abdominal pain at surgical site. Offers no other complaints. On exam patient is moderately built and nourished, no apparent distress, normocephalic atraumatic,+ hearing impairment, EOMI, normal breath sounds, clear to auscultation, S1-S2, no murmur, no pedal edema, abdomen soft,+ mild generalized tenderness,+ surgical site in dressing, normal bowel sounds, alert, awake, oriented, grossly no focal deficits. S/P partial colectomy. Pain control, DVT prophylaxis, wound care as per primary team. Continue incentive spirometry. PT OT as able. Advance diet as per surgery. Resume aspirin, Plavix as able given history of CAD, peripheral vascular disease. Continue insulin for management of diabetes mellitus while hospitalized. Monitor volume status closely. I personally reviewed the record. Patient is interviewed and examined at bedside. Patient's care is coordinated with [facility] [employer]. Please refer to the documentation above for details of anastacio walters's presentation and for discussion of other issues. History of Present Illness Reason for Consultation: Postop medical management Requesting Physician: Dr. Walton History of Present Illness 80-year-old male with PMH DM type II, CKD stage IV, dyslipidemia, HFpEF, PAD, HTN, postoperative atrial fibrillation (without recurrence, not on anticoagulation therapy), CAD, carotid artery stenosis, BPH, neurogenic bladder with chronic Louis in place, and other problems listed below who is s/p laparoscopic assisted transverse colectomy today by Dr. aWlton. Patient was having unintentional weight loss since March and underwent EGD and colonoscopy that showed a 4 cm mass in the transverse colon. Biopsy showed adenomatous tissue however no definitive carcinoma. Patient then presented for planned procedure today. Postoperative, the patient is doing well. He reports his pain is well controlled, currently rating #4/10. Denies nausea. No chest pain or shortness of breath. Denies lightheadedness and dizziness. Chronic Louis catheter is in place draining clear yellow urine. Allergies Allergy/AdvReac Type Severity Reaction Status Date / Time latex Allergy Intermediate SKIN Verified 08/22/21 05:47 BLISTERS Home Medications Medication Instructions Recorded Confirmed Type cholecalciferol (vitamin D3) 50 2,000 unit PO QAM 10/09/18 08/22/21 History mcg (2,000 unit) capsule (Vitamin D3) glipizide 10 mg tablet 10 mg PO BID 10/09/18 08/22/21 History pantoprazole 40 mg tablet,delayed 40 mg PO QAM 10/09/18 08/22/21 History release (Protonix) acetaminophen 500 mg tablet 1,000 mg PO Q8H PRN 12/23/19 08/22/21 History (Tylenol Extra Strength) aspirin 81 mg tablet,delayed 81 mg PO QAM 12/23/19 08/22/21 History release ascorbic acid (vitamin C) 500 mg 500 mg PO QAM 05/30/21 08/22/21 History tablet (Vitamin C) atorvastatin 80 mg tablet 80 mg PO QPM 05/30/21 08/22/21 History clopidogrel 75 mg tablet 75 mg PO QAM 05/30/21 08/22/21 History docusate sodium 100 mg capsule 100 mg PO BID PRN 05/30/21 08/22/21 History (Colace) ferrous sulfate 325 mg (65 mg 325 mg PO Q2D 05/30/21 08/22/21 History iron) tablet finasteride 5 mg tablet (Proscar) 5 mg PO QPM 05/30/21 08/22/21 History fluticasone propionate 50 1 spray INTRANASAL DAILY PRN 05/30/21 08/22/21 History mcg/actuation nasal spray,suspension (Flonase Allergy Relief) furosemide 40 mg tablet (Lasix) 60 mg PO QAM 05/30/21 08/22/21 History metoprolol succinate 50 mg 50 mg PO QAM 05/30/21 08/22/21 History tablet,extended release 24 hr nitroglycerin 0.4 mg sublingual 0.4 mg SUBLINGUAL UD PRN 05/30/21 08/22/21 History tablet polyethylene glycol 3350 17 gram 17 g PO PM 05/30/21 08/22/21 History oral powder packet (Miralax) linagliptin 5 mg tablet (Tradjenta) 5 mg PO QAM 07/15/21 08/22/21 History Patient History Medical History (Updated 08/22/21 @ 13:41 by CAROLINE Singh) Anemia Atrial fibrillation Postoperative asymptomatic a fib without recurrence- risk of AC felt to be greater than the benefit- continue metoprolol per cardio records BPH (benign prostatic hyperplasia) CAD (coronary artery disease) S/p 3 vessel CABG 12/2019 (LUCERO to the LAD, SVG to the OM, and SVG to PDA) Chronic heart failure with preserved ejection fraction (HFpEF) Chronic indwelling Louis catheter Neurogenic bladder per records CKD (chronic kidney disease) stage 4, GFR 15-29 ml/min x 12 yrs > no dialysis yet - Per nephro records- AVF placed 2017- in LUE (thrombosed)- had placement and revision of new AVF on left side 07/2018 with revision 09/2018 - AVG then adela vinod after failed AVF- patient agrees to IHD in the event if needed -AVG thrombosed on recent scan per 07/22/21 nephro records Degenerative disc disease Diabetic retinopathy DM type 2 (diabetes mellitus, type 2) NIDDM GERD (gastroesophageal reflux disease) Hard of hearing HLD (hyperlipidemia) HTN (hypertension) Macular degeneration Myocardial Infarction 2019 PVD (peripheral vascular disease) Bilateral ICA disease (<50% stenosis to bilateral ICAs per 2019 carotid duplex) LE PAD- 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, 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 stent 6 x 80 LifeStent, 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, right 4th toe amputation Thyroid nodule Plans for biopsy in the future Surgical History Arteriovenous fistula LUE, patent (NOT USING) History of amputation LEFT FOOT TOE AMPUTATION History of cataract extraction RT/LEFT History of colonoscopy History of coronary artery bypass graft 3 [facility] 2019 (FOLLOWED BY JAMES JADE) History of esophagogastroduodenoscopy (EGD) History of tonsillectomy History of tonsillectomy and adenoidectomy History of tooth extraction Family History Father Heart disease [place] @ age 77 Sister Diabetes Mother Cirrhosis Other No family history of adverse response to anesthesia Social History Smoking Status: Never smoker Second Hand Exposure: Yes (former smoked); Do You Dip or Chew Tobacco: No; Tobacco Cessation Education Requested by Patient: No Hx Alcohol Use: No Hx Substance Use: No Preferred Language: Indonesian Communication Ability: Effective Heliarc Welder Required: No Beliefs That Will Affect Care: None marital status: / marital status details: passed 03/2019 Current Living Situation: Alone Other Information That Helps Us Care for You: No Feels Safe at Home: Yes Safety Concerns: Feels Safe At This Time Assistive Devices: Glasses, Walker and Wheelchair Review of Systems Review of Systems: ROS per HPI, all other systems reviewed and negative Physical Exam Constitutional: WD/WN, vitals as above Eyes: PERRL, conjunctivae normal, anicteric sclerae ENMT: external ear and nose normal, oropharynx normal Respiratory: normal respiratory effort, lungs clear to auscultation Cardiovascular: Rate/Rhythm: regular rate and regular rhythm Vessels: normal peripheral pulses Extremities: no edema Gastrointestinal (Abdomen): Inspection/Auscultation: normal bowel sounds; abdomen not distended Percussion/Palpation: + abdomen tender (Incisional tenderness) and abdomen soft; no hepatosplenomegaly Laparoscopic dressings x 4 CDI Musculoskeletal: no cyanosis or clubbing, extremities motor strength 5/5 Skin: no rashes, warm and dry Neurologic: PERRL, EOMI, accommodation nl, no face palsy, no dysarthria Psychiatric: A+Ox3, euthymic affect Results & Data Results & Data ([facility]) Vital Signs (Past 12 Hours) Vital Signs Temp Pulse Pulse Resp BP Pulse Ox 08/22/21 12:30 36.9 C 65 20 167/76 H 96 08/22/21 12:00 60 14 166/62 H 95 08/22/21 11:45 60 14 160/62 H 95 08/22/21 11:30 56 L 14 162/60 H 94 08/22/21 11:15 36.4 C L 56 L 14 154/61 H 93 08/22/21 11:00 56 L 14 163/62 H 93 08/22/21 10:45 56 L 14 156/63 H 93 08/22/21 10:30 57 L 14 166/63 H 92 08/22/21 10:20 36.3 C L 56 L 14 175/65 H 92 08/22/21 10:10 59 L 14 182/68 H 92 08/22/21 10:00 64 14 182/73 H 94 08/22/21 09:50 66 14 185/77 H 96 08/22/21 09:43 36.3 C L 76 14 183/74 H 95 08/22/21 06:02 36.6 C 75 18 192/75 H 100
[2021-08-22] MEDS: ENOXAPARIN INJ 30 MG/0.3 ML SYR SQ SCH (14:11)
[2021-08-22] MEDS: PANTOprazole 40 MG TAB PO SCH (17:18)
[2021-08-22] MEDS: INSULIN ASPART PER UNIT SC SCH ×2 (17:19→21:11)
[2021-08-22] MEDS: MoRPHine SULFATE 2 MG/ML CARP IV PRN (17:21)
[2021-08-22] MEDS: hydrALAZINE 10 MG TAB PO PRN (20:11)
[2021-08-23] MEDS: hydrALAZINE 10 MG TAB PO PRN ×2 (01:43→15:08)
[2021-08-23] MEDS: MoRPHine SULFATE 2 MG/ML CARP IV PRN ×2 (05:44)
[2021-08-23 07:28] LABS: Basophils # (auto) 0.01 K/uL (0-0.2); Basophils % (auto) 0.1 %; Hemoglobin 11.2 g/dL (14.0-18.0); Immature Granulocytes # (auto) 0.04 K/uL (0.00-0.02); Immature Granulocytes % (auto) 0.3 %; Lymphocytes # (auto) 0.58 K/uL (1.2-3.4); Lymphocytes % (auto) 4.6 %; Mean Corpuscular Hemoglobin 30.6 pg (25-34); Mean Corpuscular Hgb Conc 32.9 g/dL (32-36); Mean Corpuscular Volume 92.9 fL (80-100); Mean Platelet Volume 10.7 fL (7.4-10.4); Monocytes # (auto) 1.13 K/uL (0.11-0.59); Monocytes % (auto) 9.1 %; Neutrophils # (auto) 10.72 K/uL (1.4-6.5); Neutrophils % (auto) 85.9 %; Platelet Count 208 K/uL (130-400); RDW Coefficient of Variation 13.5 % (11.5-14.5); RDW Standard Deviation 45.8 fL (36.4-46.3); Red Blood Count 3.66 M/uL (4.7-6.1); White Blood Count 12.48 K/uL (4.8-10.8)
[2021-08-23 07:45] LABS: Estimated Average Glucose 186 mg/dl; Hemoglobin A1C 8.1 % (4.5-5.6)
[2021-08-23 07:53] LABS: BUN Creatinine Ratio 15.5 (10-20); Calcium 7.7 mg/dl (8.5-10.1); Creatinine Clr Calc Pharmacy 40.5 ml/min; Est GFR (African American) 51.4 ml/min; Est GFR (Non-African American) 44.4 ml/min
[2021-08-23 08:09] LABS: Albumin Globulin Ratio 1.3 (0.9-2); Albumin Level 3.5 gm/dl (3.4-5.0); Bilirubin,Total 0.9 mg/dl (0.2-1.0); Globulin 2.7 gm/dl (2.5-4.0); Magnesium 0.8 mg/dl (1.7-2.4); Total Protein 6.2 gm/dl (6.0-8.3)
[2021-08-23] MEDS: PANTOprazole 40 MG TAB PO SCH (08:23)
[2021-08-23] MEDS: LACTATED RINGER'S 1,000 ML IV SCH (08:24)
[2021-08-23] MEDS: METOPROLOL SUCC 50MG EXT REL TAB PO SCH (08:24)
[2021-08-23] MEDS: INSULIN ASPART PER UNIT SC SCH ×4 (08:27→20:31)
[2021-08-23] MEDS: MAGNESIUM OXIDE 400 MG TAB PO SCH ×2 (09:19→21:24)
[2021-08-23] MEDS: MAGNESIUM SULFATE / D5W 1 GM/100 ML BAG IV SCH ×3 (09:23→13:30)
[2021-08-23] MEDS: oxyCODONE HCL IR 5 MG TAB (IMMEDIATE RELEASE) PO PRN ×2 (10:20→17:54)
--- NOTE | 2021-08-23 14:40 | Surgery Progress Note ---
Date of Service August 23, 2021 Assessment & Plan (1) Status post partial colectomy: Plan: POD #1 status post laparoscopic transverse colectomy. Continue clear liquid diet Out of bed, ambulate, in chair Aggressive pulmonary toilet with incentive spirometry Awaiting return of bowel function PT / OT consult Admission and Anticipated Discharge Date Admission Date: August 22, 2021 Subjective Pod 1Status post laparoscopic transverse colectomy for colon cancer. He is doing quite well. He has minimal pain, controlled with pain medicine. Denies nausea or vomiting. He states he is passed a small amount of gas. He is tolerating a clear liquid diet. Physical Exam Constitutional: WD/WN, vitals as above Neck: trachea midline, no thyromegaly Gastrointestinal (Abdomen): Inspection/Auscultation: abdomen normal to inspection, + abdomen distended ( Mild distention) and + abdominal surgical incision ( healing well without erythema discharge) Percussion/Palpation: + abdomen tender ( minimal tenderness diffusely) and abdomen soft; no guarding and abdomen not rigid Musculoskeletal: Extremities: no cyanosis and no clubbing Skin: no rashes, warm and dry Psychiatric: A+Ox3, euthymic affect Results & Data ([facility]) Vital Signs (Past 12 Hours) Vital Signs Temp Pulse Resp BP Pulse Ox 08/23/21 07:48 37.1 C 69 18 168/79 H 94 08/23/21 03:52 36.6 C 77 20 185/83 H 96 Laboratory Results 08/23/21 08/23/21 08/23/21 Range/Units 12:11 07:55 07:12 WBC (4.8-10.8) K/uL RBC (4.7-6.1) M/uL Hgb (14.0-18.0) g/dL Hct (42-52) % MCV (80-100) fL MCH (25-34) pg MCHC (32-36) g/dL RDW Std Deviation (36.4-46.3) fL RDW Coeff of Jan (11.5-14.5) % Plt Count (130-400) K/uL MPV (7.4-10.4) fL Immature Gran % (Auto) % Neut % (Auto) % Lymph % (Auto) % [place] % (Auto) % Eos % (Auto) % Baso % (Auto) % Neut # (Auto) (1.4-6.5) K/uL Lymph # (Auto) (1.2-3.4) K/uL [place] # (Auto) (0.11-0.59) K/uL Eos # (Auto) (0-0.5) K/uL Baso # (Auto) (0-0.2) K/uL Immature Gran # (Auto) (0.00-0.02) K/uL Sodium (136-145) mmol/L Potassium (3.5-5.1) mmol/L Chloride (98-107) mmol/L Carbon Dioxide (21-32) mmol/L Anion Gap (3-11) BUN (6-23) mg/dl Creatinine (0.6-1.4) mg/dl Est Cr Clr Drug Dosing ml/min Est GFR ( Amer) ml/min Est GFR (Non-Af Amer) ml/min BUN/Creatinine Ratio (10-20) Glucose (70-99(Fasting)) mg/dl POC Glucose 233 H 206 H (70-99) mg/dl Estimat Average Glucose 186 mg/dl Hemoglobin A1c 8.1 H (4.5-5.6) % Calcium (8.5-10.1) mg/dl Magnesium (1.7-2.4) mg/dl Total Bilirubin (0.2-1.0) mg/dl AST (13-39) U/L ALT (7-52) U/L Alkaline Phosphatase (34-104) U/L Total Protein (6.0-8.3) gm/dl Albumin (3.4-5.0) gm/dl Globulin (2.5-4.0) gm/dl Albumin/Globulin Ratio (0.9-2) 08/23/21 08/23/21 08/22/21 Range/Units 07:12 07:12 20:34 WBC 12.48 H (4.8-10.8) K/uL RBC 3.66 L (4.7-6.1) M/uL Hgb 11.2 L (14.0-18.0) g/dL Hct 34.0 L (42-52) % MCV 92.9 (80-100) fL MCH 30.6 (25-34) pg MCHC 32.9 (32-36) g/dL RDW Std Deviation 45.8 (36.4-46.3) fL RDW Coeff of Jan 13.5 (11.5-14.5) % Plt Count 208 (130-400) K/uL MPV 10.7 H (7.4-10.4) fL Immature Gran % (Auto) 0.3 % Neut % (Auto) 85.9 % Lymph % (Auto) 4.6 % [place] % (Auto) 9.1 % Eos % (Auto) 0.0 % Baso % (Auto) 0.1 % Neut # (Auto) 10.72 H (1.4-6.5) K/uL Lymph # (Auto) 0.58 L (1.2-3.4) K/uL [place] # (Auto) 1.13 H (0.11-0.59) K/uL Eos # (Auto) 0.00 (0-0.5) K/uL Baso # (Auto) 0.01 (0-0.2) K/uL Immature Gran # (Auto) 0.04 H (0.00-0.02) K/uL Sodium 136 (136-145) mmol/L Potassium 4.0 (3.5-5.1) mmol/L Chloride 104 (98-107) mmol/L Carbon Dioxide 23 (21-32) mmol/L Anion Gap 9 (3-11) BUN 23 (6-23) mg/dl Creatinine 1.48 H (0.6-1.4) mg/dl Est Cr Clr Drug Dosing 40.5 ml/min Est GFR ( Amer) 51.4 ml/min Est GFR (Non-Af Amer) 44.4 ml/min BUN/Creatinine Ratio 15.5 (10-20) Glucose 223 H (70-99(Fasting)) mg/dl POC Glucose 189 H (70-99) mg/dl Estimat Average Glucose mg/dl Hemoglobin A1c (4.5-5.6) % Calcium 7.7 L (8.5-10.1) mg/dl Magnesium 0.8 L* (1.7-2.4) mg/dl Total Bilirubin 0.9 (0.2-1.0) mg/dl AST 16 (13-39) U/L ALT 20 (7-52) U/L Alkaline Phosphatase 88 (34-104) U/L Total Protein 6.2 (6.0-8.3) gm/dl Albumin 3.5 (3.4-5.0) gm/dl Globulin 2.7 (2.5-4.0) gm/dl Albumin/Globulin Ratio 1.3 (0.9-2) 08/22/21 Range/Units 17:02 WBC (4.8-10.8) K/uL RBC (4.7-6.1) M/uL Hgb (14.0-18.0) g/dL Hct (42-52) % MCV (80-100) fL MCH (25-34) pg MCHC (32-36) g/dL RDW Std Deviation (36.4-46.3) fL RDW Coeff of Jan (11.5-14.5) % Plt Count (130-400) K/uL MPV (7.4-10.4) fL Immature Gran % (Auto) % Neut % (Auto) % Lymph % (Auto) % [place] % (Auto) % Eos % (Auto) % Baso % (Auto) % Neut # (Auto) (1.4-6.5) K/uL Lymph # (Auto) (1.2-3.4) K/uL [place] # (Auto) (0.11-0.59) K/uL Eos # (Auto) (0-0.5) K/uL Baso # (Auto) (0-0.2) K/uL Immature Gran # (Auto) (0.00-0.02) K/uL Sodium (136-145) mmol/L Potassium (3.5-5.1) mmol/L Chloride (98-107) mmol/L Carbon Dioxide (21-32) mmol/L Anion Gap (3-11) BUN (6-23) mg/dl Creatinine (0.6-1.4) mg/dl Est Cr Clr Drug Dosing ml/min Est GFR ( Amer) ml/min Est GFR (Non-Af Amer) ml/min BUN/Creatinine Ratio (10-20) Glucose (70-99(Fasting)) mg/dl POC Glucose 218 H (70-99) mg/dl Estimat Average Glucose mg/dl Hemoglobin A1c (4.5-5.6) % Calcium (8.5-10.1) mg/dl Magnesium (1.7-2.4) mg/dl Total Bilirubin (0.2-1.0) mg/dl AST (13-39) U/L ALT (7-52) U/L Alkaline Phosphatase (34-104) U/L Total Protein (6.0-8.3) gm/dl Albumin (3.4-5.0) gm/dl Globulin (2.5-4.0) gm/dl Albumin/Globulin Ratio (0.9-2)
[2021-08-23] MEDS: ENOXAPARIN INJ 30 MG/0.3 ML SYR SQ SCH (15:05)
--- NOTE | 2021-08-23 17:25 | Hospitalist Progress Note ---
Date of Service August 23, 2021 Assessment & Plan (1) Status post partial colectomy: Plan: Patient has weight loss for the past 6 months and underwent colonoscopy that showed a 4 cm mass in the transverse colon. Biopsy showed adenomatous tissue however no definitive carcinoma. S/P laparoscopic transverse colectomy by Dr. Walton on 08/22/21 On clear liquid diet Pain control Activity as per surgery Appreciate surgery input Pulmonary hygiene PT OT when appropriate (2) CAD (coronary artery disease): Plan: Stable Continue beta-mirella Resume aspirin and Plavix if OK with surgery Resume statin as able (3) Chronic heart failure with preserved ejection fraction (HFpEF): Plan: Resume home furosemide as able Monitor volume status closely (4) DM type 2 (diabetes mellitus, type 2): Plan: Hgb A1c 8.1 Hold oral agents Utilize NovoLog per protocol while hospitalized Monitor BGs (5) PVD (peripheral vascular disease): Plan: Resume aspirin and Plavix as soon as possible Resume statin today (6) Chronic indwelling Louis catheter: (7) BPH (benign prostatic hyperplasia): Plan: No acute issues Resume finasteride (8) CKD (chronic kidney disease) stage 4, GFR 15-29 ml/min: Plan: Baseline Cr 1.4 in 08/10 Has left arm fistula in place however has not started dialysis Monitor renal functions Avoid Nephrotoxic agents as able HTN BP elevated likely secondary to pain Pain control Continue Beta Mirella Hydralazine PRN Adjust meds as able (9) DVT prophylaxis: Plan: SQ Lovenox Thank you for this consultation. We will follow the patient with you during their hospital stay. You can reach a member of the [facility] Hospitalist Team 25/09 via the [facility] Hospitalist role in [place] Text. Admission and Anticipated Discharge Date Admission Date: August 22, 2021 Subjective Patient is seen and examined at bedside States having mild abdominal soreness at surgical site Tolerating diet Denies any chest pain, shortness of breath, dizziness, nausea No bowel movement yet Review of Systems Review of Systems: All systems reviewed & are unremarkable except as noted in Subjective Physical Exam Physical Exam: Physical Exam: Vitals signs as noted above General Appearance:Moderately built and nourished, no apparent distress Head: normocephalic, Atraumatic, + hearing impairment Eyes: normal inspection, EOMI Neck: supple, Trachea midline Respiratory/Chest: Normal breath sounds, CTA Cardiovascular: S1, S2, No murmur Abdomen/GI:Soft, + mild generalized tenderness,+ surgical site in dressing, Bowel sounds present Extremities/Musculoskeletal:normal inspection, no edema Neurologic/Psych:AAOX3, grossly no focal neurological deficits Skin: normal color, warm Results & Data Results & Data ([facility]) Vital Signs (Past 12 Hours) Vital Signs Temp Pulse Resp BP Pulse Ox 08/23/21 16:26 36.7 C 78 18 189/93 H 99 08/23/21 15:06 68 192/76 H 08/23/21 14:55 98 08/23/21 07:48 37.1 C 69 18 168/79 H 94 Laboratory Results Short CBC 08/23/21 Range/Units 07:12 WBC 12.48 H (4.8-10.8) K/uL Hgb 11.2 L (14.0-18.0) g/dL Hct 34.0 L (42-52) % Plt Count 208 (130-400) K/uL BMP 08/23/21 07:12 Sodium 136 Potassium 4.0 Chloride 104 Carbon Dioxide 23 BUN 23 Creatinine 1.48 H Glucose 223 H Calcium 7.7 L Liver Function 08/23/21 Range/Units 07:12 Total Bilirubin 0.9 (0.2-1.0) mg/dl AST 16 (13-39) U/L ALT 20 (7-52) U/L Alkaline Phosphatase 88 (34-104) U/L Albumin 3.5 (3.4-5.0) gm/dl
[2021-08-23] MEDS ORDERED: amLODIPine BESYLATE 5 MG TAB PO SCH ×2 (18:05→18:15)
[2021-08-23] MEDS: hydrALAZINE HCL 20 MG/ML VIAL IV PRN (19:43)
[2021-08-23] MEDS: FINASTERIDE 5 MG TAB PO SCH (21:24)
[2021-08-23] MEDS: ATORVASTATIN 40 MG TAB PO SCH (21:24)
[2021-08-23] MEDS ORDERED: amLODIPine BESYLATE 5 MG TAB PO ONE (22:04)
[2021-08-24] MEDS ORDERED: NITROGLYCERIN SL 0.4 MG/TAB TAB SL STA (06:37)
[2021-08-24] MEDS: hydrALAZINE HCL 20 MG/ML VIAL IV PRN (06:45)
[2021-08-24] MEDS ORDERED: LORazepam 0.25 MG in SYRINGE 0.125 ML IV STA (07:01)
[2021-08-24 07:28] LABS: Basophils # (auto) 0.01 K/uL (0-0.2); Basophils % (auto) 0.1 %; Eosinophils # (auto) 0.09 K/uL (0-0.5); Eosinophils % (auto) 0.8 %; Hematocrit (blood only) 32.7 % (42-52); Immature Granulocytes # (auto) 0.03 K/uL (0.00-0.02); Immature Granulocytes % (auto) 0.3 %; Lymphocytes # (auto) 0.67 K/uL (1.2-3.4); Mean Corpuscular Hemoglobin 31.3 pg (25-34); Mean Corpuscular Hgb Conc 33.6 g/dL (32-36); Mean Corpuscular Volume 93.2 fL (80-100); Mean Platelet Volume 10.5 fL (7.4-10.4); Monocytes # (auto) 1.09 K/uL (0.11-0.59); Monocytes % (auto) 9.8 %; Neutrophils # (auto) 9.22 K/uL (1.4-6.5); Platelet Count 225 K/uL (130-400); RDW Coefficient of Variation 13.5 % (11.5-14.5); RDW Standard Deviation 45.8 fL (36.4-46.3); Red Blood Count 3.51 M/uL (4.7-6.1); White Blood Count 11.11 K/uL (4.8-10.8)
[2021-08-24 07:42] LABS: Partial Thromboplastin Ratio 1.1
[2021-08-24 07:48] LABS: Albumin Globulin Ratio 1.2 (0.9-2); Albumin Level 3.3 gm/dl (3.4-5.0); BUN Creatinine Ratio 14.8 (10-20); Bilirubin,Total 1.3 mg/dl (0.2-1.0); Calcium 8.1 mg/dl (8.5-10.1); Creatinine Clr Calc Pharmacy 46.8 ml/min; Est GFR (African American) 61.3 ml/min; Est GFR (Non-African American) 52.9 ml/min; Globulin 2.8 gm/dl (2.5-4.0); Magnesium 1.6 mg/dl (1.7-2.4); Total Protein 6.1 gm/dl (6.0-8.3)
[2021-08-24] MEDS: PANTOprazole 40 MG TAB PO SCH (08:20)
[2021-08-24] MEDS: amLODIPine BESYLATE 5 MG TAB PO SCH (08:21)
[2021-08-24] MEDS: METOPROLOL SUCC 50MG EXT REL TAB PO SCH (08:21)
[2021-08-24] MEDS: INSULIN ASPART PER UNIT SC SCH ×4 (08:22→21:45)
[2021-08-24] MEDS: MAGNESIUM OXIDE 400 MG TAB PO SCH ×2 (08:22→21:43)
--- NOTE | 2021-08-24 12:35 | Electrocardiogram Report ---
Test Reason : Blood Pressure : / mmHG Vent. Rate : 094 BPM Atrial Rate : 094 BPM P-R Int : 214 ms QRS Dur : 090 ms QT Int : 338 ms P-R-T Axes : 065 -06 090 degrees QTc Int : 422 ms Sinus rhythm with 1st degree A-V block Poor R wave progression, consider anterior WA vs. lead placement vs. LVH Abnormal ECG When compared with ECG of 24-DEC-2019 06:25, Vent. rate has increased BY 47 BPM QT has lengthened Confirmed by Sandeep Tsai ([id number]) on 08/24/2021 12:34:42 PM Referred By: Kelvin Walton Confirmed By:Sandeep Tsai
--- NOTE | 2021-08-24 13:12 | Surgery Progress Note ---
Date of Service August 24, 2021 Assessment & Plan (1) Status post partial colectomy: Plan: POD #2 status post laparoscopic transverse colectomy. Continue clear liquid diet Awaiting bowel function return Out of bed, ambulate, in chair Aggressive pulmonary toilet with incentive spirometry PT / OT consult Admission and Anticipated Discharge Date Admission Date: August 22, 2021 Subjective Postoperative day 2 Status post laparoscopic transverse colectomy. He is doing fairly well. He was moved to telemetry due to blood pressure issues. He denies abdominal pain. He denies nausea vomiting. He is tolerating a clear liquid diet. He has minimal flatus. Physical Exam Constitutional: WD/WN, vitals as above Neck: trachea midline, no thyromegaly Gastrointestinal (Abdomen): Inspection/Auscultation: abdomen normal to inspection, + abdomen distended ( Mild distention) and + abdominal surgical incision ( healing well without erythema discharge) Percussion/Palpation: + abdomen tender ( minimal tenderness diffusely) and abdomen soft; no guarding and abdomen not rigid Musculoskeletal: Extremities: no cyanosis and no clubbing Skin: no rashes, warm and dry Psychiatric: A+Ox3, euthymic affect Results & Data ([facility]) Vital Signs (Past 12 Hours) Vital Signs Temp Pulse Pulse Resp BP Pulse Ox 08/24/21 11:12 36.6 C 91 H 19 143/65 H 91 08/24/21 07:31 98 H 139/64 08/24/21 06:36 36.7 C 95 H 22 192/86 H 93 08/24/21 03:55 78 08/24/21 03:00 36.8 C 84 18 165/74 H 93
[2021-08-24] MEDS: ASPIRIN 81 MG ECTAB PO SCH ×2 (14:16→14:17)
[2021-08-24] MEDS: ENOXAPARIN INJ 30 MG/0.3 ML SYR SQ SCH (15:08)
--- NOTE | 2021-08-24 16:02 | Hospitalist Progress Note ---
Date of Service August 24, 2021 Assessment & Plan (1) Status post partial colectomy: Plan: per Dr. Fernandez's notes with addendum: Patient has weight loss for the past 6 months and underwent colonoscopy that showed a 4 cm mass in the transverse colon. Biopsy showed adenomatous tissue however no definitive carcinoma. S/P laparoscopic transverse colectomy by Dr. Walton on 08/22/21 On clear liquid diet Pain control Activity as per surgery Appreciate surgery input Pulmonary hygiene PT OT when appropriate 08/24 on clears advance diet per Surgery DVT prophylaxis per Surgery (2) CAD (coronary artery disease): Plan: Stable Continue beta-matilda Resume aspirin and Plavix if OK with surgery Resume statin as able 08/24 (+) chest pain this AM troponins x 2 negative EKG no acute ischemia or infarct Aspirin resume Hold Plavix for now per surgery Continue Lipitor Chest pain likely secondary to hypertension, uncontrolled Amlodipine 10 mg p.o. started BP improving (3) Chronic heart failure with preserved ejection fraction (HFpEF): Plan: Euvolemic Hold Lasix for now (4) DM type 2 (diabetes mellitus, type 2): Plan: Hgb A1c 8.1 Hold oral agents Utilize NovoLog per protocol while hospitalized BSG-170s (5) PVD (peripheral vascular disease): Plan: Aspirin resume Plavix on hold Continue Lipitor (6) Chronic indwelling Louis catheter: (7) BPH (benign prostatic hyperplasia): Plan: No acute issues On finasteride (8) CKD (chronic kidney disease) stage 4, GFR 15-29 ml/min: Plan: Baseline Cr 1.4 in 08/10 Has left arm fistula in place however has not started dialysis Creatinine stable Avoid Nephrotoxic agents as able HTN BP elevated likely secondary to pain Amlodipine started BP improved (9) DVT prophylaxis: Plan: SQ Lovenox Thank you for this consultation. We will follow the patient with you during their hospital stay. You can reach a member of the [facility] Hospitalist Team 25/09 via the [facility] Hospitalist role in [place] Text. Admission and Anticipated Discharge Date Admission Date: August 22, 2021 Subjective ff up s/p partial colectomy, etc events in am reviewed resting in bed, comfortable in good spirits states he feels better overall no chest pain, dyspnea, palpitations, dizziness no abdominal pain ,nausea/vomiting, fever/chills (+) flatus, no BM yet no other symptoms Review of Systems Review of Systems: all noted and negative except for above Physical Exam Physical Exam: General- oriented x 3, not in distress, speaks in sentences with no effort or accessory muscle use Eyes- anicteric Neck- no JVD Lungs- clear breath sounds bilaterally, no rales/wheezes Heart- normal rate, regular rhythm; no murmurs Abdomen- normal bowel sounds, nondistended, soft, nontender dressing in place: no bleeding or discharge Extremities- no pretibial edema, no calf tenderness Neuro- alert, oriented x 3; no gross focal neurologic deficits Skin- warm & dry Results & Data Results & Data ([facility]) Vital Signs (Past 12 Hours) Vital Signs Temp Pulse Resp BP Pulse Ox 08/24/21 15:30 36.8 C 81 19 173/67 H 95 08/24/21 11:12 36.6 C 91 H 19 143/65 H 91 08/24/21 07:31 98 H 139/64 08/24/21 06:36 36.7 C 95 H 22 192/86 H 93 all noted and reviewed including below
[2021-08-24] MEDS: ACETAMINOPHEN 325 MG TAB PO PRN (20:55)
[2021-08-24 21:06] LABS: Appearance Urine Cloudy (Clear); Bacteria Urine Automated 2+ (Negative); Bilirubin Urine Negative (Negative); Blood Urine Negative (Negative); Color Urine Yellow; Glucose Urine UA Negative (Negative); Ketones Urine 1+ (Negative); Leukocyte Esterase Urine 2+ (Negative); Nitrite Urine Positive (Negative); Protein Urine 2+ (Negative); Specific Gravity Urine 1.015 (1.000-1.030); Urobilinogen Urine Negative (Negative); WBC Urine Automated >30 /hpf (0-5)
[2021-08-24] MEDS ORDERED: SODIUM CHLORIDE 0.9% 1000ML 1,000 ML IV ONE (21:08)
--- NOTE | 2021-08-24 21:12 | XRay Report ---
XR chest 1V portable CLINICAL HISTORY: cough. COMPARISON STUDY: 12/23/2019 TECHNIQUE: 1 view of the chest FINDINGS: Single frontal view of the chest demonstrates the cardiomediastinal silhouette to be within normal li mits. The lungs are clear of alveolar opacities. There is no evidence for pleural effusion. There is no evidence for vascular congestion. There is no acute osseous pathology. IMPRESSION: 1. No acute cardiopulmonary disease. ACT 112: Negative or not required by law. Electronically signed by: Roddy Swan M.D. 08/24/2021 9:10 PM
[2021-08-24] MEDS: ATORVASTATIN 40 MG TAB PO SCH (21:44)
[2021-08-24] MEDS: FINASTERIDE 5 MG TAB PO SCH (21:44)
--- NOTE | 2021-08-24 22:38 | Communication Note ---
Date of Service: August 24, 2021 Patient with low-grade fever. UA WBC esterase, nitrite positive AP Complicated UTI Urine CS, Cefepime
[2021-08-25] MEDS ORDERED: CEFEPIME 2,000 MG in SYRINGE 0 ML IV SCH
[2021-08-25 07:15] LABS: Basophils # (auto) 0.01 K/uL (0-0.2); Basophils % (auto) 0.1 %; Eosinophils # (auto) 0.23 K/uL (0-0.5); Eosinophils % (auto) 2.4 %; Hematocrit (blood only) 30.7 % (42-52); Hemoglobin 10.3 g/dL (14.0-18.0); Immature Granulocytes # (auto) 0.03 K/uL (0.00-0.02); Immature Granulocytes % (auto) 0.3 %; Lymphocytes # (auto) 0.41 K/uL (1.2-3.4); Lymphocytes % (auto) 4.2 %; Mean Corpuscular Hemoglobin 31.4 pg (25-34); Mean Corpuscular Hgb Conc 33.6 g/dL (32-36); Mean Corpuscular Volume 93.6 fL (80-100); Mean Platelet Volume 10.3 fL (7.4-10.4); Monocytes # (auto) 0.87 K/uL (0.11-0.59); Platelet Count 196 K/uL (130-400); RDW Coefficient of Variation 13.2 % (11.5-14.5); RDW Standard Deviation 45.5 fL (36.4-46.3); Red Blood Count 3.28 M/uL (4.7-6.1); White Blood Count 9.65 K/uL (4.8-10.8)
--- NOTE | 2021-08-25 07:42 | Surgery Progress Note ---
Date of Service August 25, 2021 Assessment & Plan (1) Status post partial colectomy: Plan: POD #3 status post laparoscopic transverse colectomy. Advance to heart healthy/DM diet Out of bed, ambulate, in chair Aggressive pulmonary toilet with incentive spirometry PT / OT start D/C planning for possible Rehab/SNF probable d/c tomorrow or Sunday Admission and Anticipated Discharge Date Admission Date: August 22, 2021 Subjective POD#3 s/p lap transverse colectomy. doing well. passing flatus and had large BM this am. no nausea/vomiting. PT/OT seeing. Physical Exam Constitutional: WD/WN, vitals as above Neck: trachea midline, no thyromegaly Gastrointestinal (Abdomen): Inspection/Auscultation: abdomen normal to inspection, + abdomen distended ( Mild distention) and + abdominal surgical incision ( healing well without erythema discharge) Percussion/Palpation: + abdomen tender ( minimal tenderness diffusely) and abdomen soft; no guarding and abdomen not rigid Musculoskeletal: Extremities: no cyanosis and no clubbing Skin: no rashes, warm and dry Psychiatric: A+Ox3, euthymic affect Results & Data ([facility]) Vital Signs (Past 12 Hours) Vital Signs Temp Pulse Pulse Resp BP Pulse Ox 08/25/21 04:00 36.8 C 80 22 170/71 H 95 08/25/21 02:41 78 08/25/21 00:01 37.0 C 75 18 161/61 H 95 08/24/21 20:16 37.8 C H 08/24/21 19:51 37.5 C 83 18 155/71 H 96
[2021-08-25 07:47] LABS: Albumin Globulin Ratio 1.2 (0.9-2); Albumin Level 3.1 gm/dl (3.4-5.0); Bilirubin,Total 1.1 mg/dl (0.2-1.0); Calcium 7.9 mg/dl (8.5-10.1); Creatinine Clr Calc Pharmacy 42.5 ml/min; Est GFR (African American) 54.5 ml/min; Globulin 2.5 gm/dl (2.5-4.0); Magnesium 1.6 mg/dl (1.7-2.4); Potassium 3.6 mmol/L (3.5-5.1); Total Protein 5.6 gm/dl (6.0-8.3)
[2021-08-25] MEDS: MAGNESIUM OXIDE 400 MG TAB PO SCH ×2 (09:05→22:39)
[2021-08-25] MEDS: ASPIRIN 81 MG ECTAB PO SCH (09:05)
[2021-08-25] MEDS: amLODIPine BESYLATE 5 MG TAB PO SCH (09:05)
[2021-08-25] MEDS: PANTOprazole 40 MG TAB PO SCH (09:05)
[2021-08-25] MEDS: METOPROLOL SUCC 50MG EXT REL TAB PO SCH (09:06)
[2021-08-25] MEDS: INSULIN ASPART PER UNIT SC SCH ×4 (09:07→22:40)
[2021-08-25] MEDS: ENOXAPARIN INJ 30 MG/0.3 ML SYR SQ SCH (14:30)
[2021-08-25] MEDS: oxyCODONE HCL IR 5 MG TAB (IMMEDIATE RELEASE) PO PRN (17:10)
--- NOTE | 2021-08-25 19:50 | Hospitalist Progress Note ---
Date of Service August 25, 2021 Assessment & Plan (1) Status post partial colectomy: Plan: per Dr. Fernandez's notes with addendum: Patient has weight loss for the past 6 months and underwent colonoscopy that showed a 4 cm mass in the transverse colon. Biopsy showed adenomatous tissue however no definitive carcinoma. S/P laparoscopic transverse colectomy by Dr. Walton on 08/22/21 On clear liquid diet Pain control Activity as per surgery Appreciate surgery input Pulmonary hygiene PT OT when appropriate 08/25 Diet advanced to regular consistency, seems to be tolerating well DVT prophylaxis per Surgery (2) CAD (coronary artery disease): Plan: Stable Continue beta-matilda Resume aspirin and Plavix if OK with surgery Resume statin as able 08/25 (+) chest pain this AM troponins x 2 negative EKG no acute ischemia or infarct Aspirin resumed Hold Plavix for now per surgery Continue Lipitor Chest pain likely secondary to hypertension, uncontrolled Amlodipine 10 mg p.o. started Continue to trend BP (3) Chronic heart failure with preserved ejection fraction (HFpEF): Plan: Euvolemic Hold Lasix for now (4) DM type 2 (diabetes mellitus, type 2): Plan: Hgb A1c 8.1 Hold oral agents Utilize NovoLog per protocol while hospitalized BSG-204 (5) PVD (peripheral vascular disease): Plan: Aspirin resume Plavix on hold Continue Lipitor (6) Chronic indwelling Louis catheter: (7) BPH (benign prostatic hyperplasia): Plan: No acute issues On finasteride (8) CKD (chronic kidney disease) stage 4, GFR 15-29 ml/min: Plan: Baseline Cr 1.4 in 08/10 Has left arm fistula in place however has not started dialysis Creatinine stable Avoid Nephrotoxic agents as able HTN BP elevated likely secondary to pain Amlodipine started Continue to trend BP (9) DVT prophylaxis: Plan: SQ Lovenox Thank you for this consultation. We will follow the patient with you during their hospital stay. You can reach a member of the [facility] Hospitalist Team 25/09 via the [facility] Hospitalist role in [place] Text. Admission and Anticipated Discharge Date Admission Date: August 22, 2021 Subjective Follow-up for status post colectomy, hypertension, etc. Seen resting in bed, comfortable, in good spirits No recurrence of chest pain since yesterday No shortness of breath, headache, dizziness, palpitations No abdominal pain, tolerating clear liquid diet No other symptoms Review of Systems Review of Systems: all noted and negative except for above Physical Exam Physical Exam: General- oriented x 3, not in distress, speaks in sentences with no effort or accessory muscle use Eyes- anicteric Neck- no JVD Lungs- clear breath sounds bilaterally, no rales/wheezes Heart- normal rate, regular rhythm; no murmurs Abdomen- normal bowel sounds, nondistended, soft, nontender Dressings in place: No bleeding or discharge Extremities- no pretibial edema, no calf tenderness Neuro- alert, oriented x 3; no gross focal neurologic deficits Skin- warm & dry Results & Data Results & Data ([facility]) Vital Signs (Past 12 Hours) Vital Signs Temp Pulse Pulse Resp BP Pulse Ox 08/25/21 18:22 88 08/25/21 15:40 36.4 C L 82 18 155/71 H 97 08/25/21 11:25 36.4 C L 80 18 174/69 H 95 all noted and reviewed including below
[2021-08-25] MEDS: ATORVASTATIN 40 MG TAB PO SCH (22:39)
[2021-08-25] MEDS: FINASTERIDE 5 MG TAB PO SCH (22:40)
[2021-08-26] MEDS: ACETAMINOPHEN 325 MG TAB PO PRN ×2 (00:10→19:52)
[2021-08-26] MEDS: CEFEPIME 2,000 MG in SYRINGE 0 ML IV SCH (00:26)
[2021-08-26] MEDS: ASPIRIN 81 MG ECTAB PO SCH (08:29)
[2021-08-26] MEDS: amLODIPine BESYLATE 5 MG TAB PO SCH (08:29)
[2021-08-26] MEDS: PANTOprazole 40 MG TAB PO SCH (08:29)
[2021-08-26] MEDS: INSULIN ASPART PER UNIT SC SCH ×4 (08:31→21:40)
[2021-08-26] MEDS: METOPROLOL SUCC 50MG EXT REL TAB PO SCH (09:50)
[2021-08-26] MEDS: MAGNESIUM OXIDE 400 MG TAB PO SCH ×2 (09:50→21:41)
[2021-08-26 11:19] LABS: BUN Creatinine Ratio 16.3 (10-20); Calcium 8.5 mg/dl (8.5-10.1); Creatinine Clr Calc Pharmacy 42.5 ml/min; Est GFR (African American) 54.5 ml/min; Potassium 3.6 mmol/L (3.5-5.1)
[2021-08-26] MEDS: ENOXAPARIN INJ 30 MG/0.3 ML SYR SQ SCH (14:10)
--- NOTE | 2021-08-26 14:53 | Surgery Progress Note ---
Date of Service August 26, 2021 Assessment & Plan (1) Status post partial colectomy: Plan: POD #4 status post laparoscopic transverse colectomy. Advance to heart healthy/DM diet Out of bed, ambulate, in chair Aggressive pulmonary toilet with incentive spirometry PT / OT D/C to rehab tomorrow Admission and Anticipated Discharge Date Admission Date: August 22, 2021 Subjective doing well. tolerating diet. no nausea/vomiting. positive flatus and BMs Physical Exam Constitutional: WD/WN, vitals as above Neck: trachea midline, no thyromegaly Gastrointestinal (Abdomen): Inspection/Auscultation: abdomen normal to inspection, + abdomen distended ( Mild distention) and + abdominal surgical incision ( healing well without erythema discharge) Percussion/Palpation: + abdomen tender ( minimal tenderness diffusely) and abdomen soft; no guarding and abdomen not rigid Musculoskeletal: Extremities: no cyanosis and no clubbing Skin: no rashes, warm and dry Psychiatric: A+Ox3, euthymic affect Results & Data ([facility]) Vital Signs (Past 12 Hours) Vital Signs Temp Pulse Pulse Resp BP Pulse Ox 08/26/21 12:00 36.8 C 77 20 119/63 96 08/26/21 08:00 36.7 C 78 87 16 128/67 97 08/26/21 03:10 36.8 C 72 14 145/58 H 97
[2021-08-26] MEDS: FUROSEMIDE 20 MG TAB PO SCH (16:46)
[2021-08-26] MEDS: CLOPIDOGREL BISULFATE 75 MG TAB PO SCH (16:47)
--- NOTE | 2021-08-26 19:44 | Hospitalist Progress Note ---
Date of Service August 26, 2021 delayed entry date of service noted above Assessment & Plan (1) Status post partial colectomy: Plan: per Dr. Fernandez's notes with addendum: Patient has weight loss for the past 6 months and underwent colonoscopy that showed a 4 cm mass in the transverse colon. Biopsy showed adenomatous tissue however no definitive carcinoma. S/P laparoscopic transverse colectomy by Dr. Walton on 08/22/21 On clear liquid diet Pain control Activity as per surgery Appreciate surgery input Pulmonary hygiene PT OT when appropriate 08/26 Tolerating diet well DVT prophylaxis per Surgery (2) CAD (coronary artery disease): Plan: Stable Continue beta-matilda Resume aspirin and Plavix if OK with surgery Resume statin as able 08/26 (+) chest pain 08/25 troponin x 2 negative EKG no acute ischemia or infarct Aspirin and Plavix resumed, okay with surgery Continue Lipitor Chest pain likely secondary to hypertension, uncontrolled Amlodipine 10 mg p.o. started BP improving (3) Chronic heart failure with preserved ejection fraction (HFpEF): Plan: Continue Lasix Euvolemic (4) DM type 2 (diabetes mellitus, type 2): Plan: Hgb A1c 8.1 Hold oral agents Utilize NovoLog per protocol while hospitalized BSG-204 (5) PVD (peripheral vascular disease): Plan: Resume aspirin and Plavix Continue Lipitor (6) Chronic indwelling Louis catheter: Plan: Urine culture: 3 types of organisms present Denies abdominal pain, flank pain, no recurrence of fever, no leukocytosis Monitor (7) BPH (benign prostatic hyperplasia): Plan: No acute issues On finasteride (8) CKD (chronic kidney disease) stage 4, GFR 15-29 ml/min: Plan: Baseline Cr 1.4 in 08/10 Has left arm fistula in place however has not started dialysis Creatinine stable Avoid Nephrotoxic agents as able HTN BP elevated likely secondary to pain Amlodipine started BP improving (9) DVT prophylaxis: Plan: SQ Lovenox Thank you for this consultation. We will follow the patient with you during their hospital stay. You can reach a member of the [facility] Hospitalist Team 25/09 [facility] [place] Text. Admission and Anticipated Discharge Date Admission Date: August 22, 2021 Subjective Follow-up for status post colectomy, hypertension, etc. Seen resting in bed, comfortable, not in distress In good spirits Denies chest pain, palpitations, dizziness, shortness of breath, nausea vomiting abdominal pain Tolerating diet well No other symptoms Review of Systems Review of Systems: all noted and negative except for above Physical Exam Physical Exam: General- oriented x 3, not in distress, speaks in sentences with no effort or accessory muscle use Eyes- anicteric Neck- no JVD Lungs- clear breath sounds bilaterally, no rales/wheezes Heart- normal rate, regular rhythm; no murmurs Abdomen- normal bowel sounds, nondistended, soft, nontender Extremities- no pretibial edema, no calf tenderness Neuro- alert, oriented x 3; no gross focal neurologic deficits Skin- warm & dry Results & Data Results & Data ([facility]) Vital Signs (Past 12 Hours) Vital Signs Temp Pulse Pulse Resp BP Pulse Ox 08/26/21 19:39 36.6 C 74 20 173/72 H 99 08/26/21 14:03 36.5 C 69 18 108/65 97 08/26/21 12:00 36.8 C 77 20 119/63 96 08/26/21 08:00 36.7 C 78 87 16 128/67 97 all noted and reviewed including below
[2021-08-26] MEDS: ATORVASTATIN 40 MG TAB PO SCH (21:40)
[2021-08-26] MEDS: FINASTERIDE 5 MG TAB PO SCH (21:40)
[2021-08-27] MEDS: CEFEPIME 2,000 MG in SYRINGE 0 ML IV SCH (00:04)
[2021-08-27] MEDS: INSULIN ASPART PER UNIT SC SCH (08:28)
[2021-08-27] MEDS: CLOPIDOGREL BISULFATE 75 MG TAB PO SCH (08:29)
[2021-08-27] MEDS: ASPIRIN 81 MG ECTAB PO SCH (08:29)
[2021-08-27] MEDS: METOPROLOL SUCC 50MG EXT REL TAB PO SCH (08:29)
[2021-08-27] MEDS: PANTOprazole 40 MG TAB PO SCH (08:29)
[2021-08-27] MEDS: amLODIPine BESYLATE 5 MG TAB PO SCH (08:29)
--- NOTE | 2021-08-27 08:40 | Surgery Progress Note ---
Date of Service August 27, 2021 Assessment & Plan (1) Status post partial colectomy: Plan: POD #5 status post laparoscopic transverse colectomy. Discharge to rehab facility this morning. Follow-up in clinic next or Sunday for staple removal. Admission and Anticipated Discharge Date Admission Date: August 22, 2021 Subjective doing well. tolerating regular diet. no nausea/vomiting. positive flatus and BMs Physical Exam Constitutional: WD/WN, vitals as above Neck: trachea midline, no thyromegaly Gastrointestinal (Abdomen): Inspection/Auscultation: abdomen normal to inspection, + abdomen distended ( Mild distention) and + abdominal surgical incision ( healing well without erythema discharge) Percussion/Palpation: + abdomen tender ( minimal tenderness diffusely) and abdomen soft; no guarding and abdomen not rigid Musculoskeletal: Extremities: no cyanosis and no clubbing Skin: no rashes, warm and dry Psychiatric: A+Ox3, euthymic affect Results & Data ([facility]) Vital Signs (Past 12 Hours) Vital Signs Temp Pulse Pulse Resp BP Pulse Ox 08/27/21 07:30 36.7 C 72 18 138/72 97 08/27/21 03:28 36.6 C 68 18 161/67 H 98 08/26/21 23:41 36.7 C 73 18 169/76 H 97 08/26/21 22:16 64
[2021-08-27] MEDS: MAGNESIUM OXIDE 400 MG TAB PO SCH (09:10)
[2021-08-27] MEDS: FUROSEMIDE 20 MG TAB PO SCH (09:10)
[2021-08-27 10:24] LABS: BUN Creatinine Ratio 14.7 (10-20); Calcium 8.7 mg/dl (8.5-10.1); Creatinine Clr Calc Pharmacy 41.9 ml/min; Est GFR (African American) 53.6 ml/min; Est GFR (Non-African American) 46.3 ml/min; Potassium 3.8 mmol/L (3.5-5.1)
--- NOTE | 2021-08-27 15:13 | Hospitalist Progress Note ---
Date of Service August 27, 2021 Assessment & Plan (1) Status post partial colectomy: Plan: per Dr. Fernandez's notes with addendum: Patient has weight loss for the past 6 months and underwent colonoscopy that showed a 4 cm mass in the transverse colon. Biopsy showed adenomatous tissue however no definitive carcinoma. S/P laparoscopic transverse colectomy by Dr. Walton on 08/22/21 On clear liquid diet Pain control Activity as per surgery Appreciate surgery input Pulmonary hygiene PT OT when appropriate 08/27 Tolerating diet well (2) CAD (coronary artery disease): Plan: Stable Continue beta-matilda Resume aspirin and Plavix if OK with surgery Resume statin as able 08/27 (+) chest pain 08/25 troponin x 2 negative EKG no acute ischemia or infarct Aspirin and Plavix resumed, okay with surgery Continue Lipitor Chest pain likely secondary to hypertension, uncontrolled Amlodipine 10 mg p.o. started BP improving (3) Chronic heart failure with preserved ejection fraction (HFpEF): Plan: Continue Lasix Euvolemic (4) DM type 2 (diabetes mellitus, type 2): Plan: Hgb A1c 8.1 Hold oral agents Utilize NovoLog per protocol while hospitalized BSG-204 (5) PVD (peripheral vascular disease): Plan: Resume aspirin and Plavix Continue Lipitor (6) Chronic indwelling Louis catheter: Plan: Urine culture: 3 types of organisms present Denies abdominal pain, flank pain, no recurrence of fever, no leukocytosis Monitor (7) BPH (benign prostatic hyperplasia): Plan: No acute issues On finasteride (8) CKD (chronic kidney disease) stage 4, GFR 15-29 ml/min: Plan: Baseline Cr 1.4 in 08/10 Has left arm fistula in place however has not started dialysis Creatinine stable Avoid Nephrotoxic agents as able HTN BP elevated likely secondary to pain Amlodipine started BP improving (9) DVT prophylaxis: Plan: SQ Lovenox Thank you for this consultation. We will follow the patient with you during their hospital stay. You can reach a member of the [facility] Hospitalist Team 25/09 via the [facility] Hospitalist role in [place] Text. Admission and Anticipated Discharge Date Admission Date: August 22, 2021 Subjective Follow-up for hypertension, status post colectomy, etc. Seen resting in bed, comfortable, not distressed Denies chest pain palpitations, dizziness, shortness of breath abdominal pain, nausea vomiting No other symptoms Review of Systems Review of Systems: all noted and negative except for above Physical Exam Physical Exam: General- oriented x 3, not in distress, speaks in sentences with no effort or accessory muscle use Eyes- anicteric Neck- no JVD Lungs- clear BS bilaterally, no rales/wheezes Heart- normal rate, regular rhythm; no murmurs Abdomen- normal bowel sounds, nondistended, soft, nontender Extremities- no pretibial edema, no calf tenderness Neuro- alert, oriented x 3; no gross focal neurologic deficits Skin- warm & dry Results & Data Results & Data ([facility]) Vital Signs (Past 12 Hours) Vital Signs Temp Pulse Pulse Resp BP Pulse Ox 08/27/21 10:28 77 08/27/21 10:00 36.7 C 72 18 138/72 97 08/27/21 07:30 36.7 C 72 18 138/72 97 08/27/21 03:28 36.6 C 68 18 161/67 H 98
--- NOTE | 2021-09-02 08:53 | Discharge Summary ---
Date of Service September 02, 2021 Admission HPI Per Admitting Provider Leo presented to [facility] for elective laparoscopic assisted transverse colectomy for a 4 cm colonic mass seen on colonoscopy which was unable to be completely removed in setting of 6 month weight loss. Colonoscopy biopsy showed adenomatous polyp but no definitive carcinoma. Principal Diagnosis Transverse colon mass Discharge Data Allergies Allergy/AdvReac Type Severity Reaction Status Date / Time latex Allergy Intermediate SKIN Verified 08/22/21 05:47 BLISTERS Consultations 08/22/21 11:46 Consult Hospitalist Routine Procedures Performed Operation Date: 08/22/21 07:15 Actual Procedures p Laparoscopic Assisted Transverse Colectomy - Kelvin Walton MD Hospital Course (1) Status post partial colectomy: Patient was taken to operating room for laparoscopic assisted transverse colectomy by Dr. Walton. Patient tolerated procedure well and was transferred to recovery then to PCU postoperatively given his medical comorbidities. Hospitalist was consulted for comanagement. His diet was started at clear liquids, activity as tolerated, incentive spirometry, Lovenox for DVT prophylaxis, pain management as needed. On POD # 2 patient had low grade fever and UA showed positive nitrates, and WBC esterase. Cefepime was started. He also was having some chest pain in which EKG and tropinin x 2 negative. Likely felt to be secondary to hypertension due to postop pain. Amlodipine was added by hospitalist service. On POD # 3 he had return of bowel function and diet was advanced to heart healthy diet. PT/OT were consulted. Patient was discharged from hospital on POD # 5 in stable condition to rehab facility. Total Time Total Time Spent Total Time Spent (In Minutes): 30 minutes Total Time Includes: Examination of the Patient, Discharge Planning and Medication Reconciliation Discharge Plan Discharge Items Patient Disposition: Transfer Nursing Home Fac Reason For Visit: Colonic Mass Discharge Diagnosis: colon mass Activity: Per Instructions section Lifting: No more than 10 pounds Bathing: May shower/bathe in 3 days Sexual Activity: Wait until after follow-up appointment Exercise/Sports: Wait until after follow-up appointment Driving/Machine Use: Resume 3 days after discharge Non-emergency contact: Surgeon Call non-emergency contact if: you have any medication questions, your symptoms worsen, your pain is not controlled, your pain is worsening, your pain is unusual for you, your pain is concerning for you, your temperature is above 101.5, your wound has increased redness, your wound has increased drainage and your wound pain has increased Follow-up/Referrals: Astrid Burgess MD [Primary Care Provider] - Diet: Heart Healthy Addtl Attending Provider Instructions: ACTIVITY RECOMMENDATIONS: * Walk as much as possible. * No heavy lifting (>10 lbs.) for 2 weeks. SPECIAL CARE INSTRUCTIONS: * May shower. No soaking in tub.. Let water run over area and pat dry. * Leave eric in place. * Call the surgeon's office with any questions or concerns - (ex. temperature higher than 101 degrees F, excessive bleeding or pain). MEDICATIONS: Resume previous medications unless instructed otherwise by your surgeon. * Ibuprofen 600 mg every 6 hours with food * Percocet 1 every 4 hours, as needed for pain FOLLOW UP VISIT: If not already scheduled, please call the office to schedule a one week follow- up appointment. Office number Pending Studies at Discharge: No Stand-Alone Forms: [facility] Skilled Items Patient informed of condition?: Yes DNR: No Discharge Level of Care: Acute rehab Communicable Disease: No Discharge Prognosis: Improving Lines: None Urinary Catheter: No Medications and DC Order Prescriptions: New oxycodone-acetaminophen [Percocet] 5-325 mg tablet 1 tab PO Q6H PRN (Reason: pain) Qty: 20 RF: 0 Continued glipizide 10 mg Tablet 10 mg PO BID RF: 0 pantoprazole [Protonix] 40 mg Tablet,Delayed Release (Dr/Ec) 40 mg PO QAM RF: 0 cholecalciferol (vitamin D3) [Vitamin D3] 2,000 unit Capsule 2,000 unit PO QAM RF: 0 aspirin 81 mg Tablet,Delayed Release (Dr/Ec) 81 mg PO QAM RF: 0 acetaminophen [Tylenol Extra Strength] 500 mg Tablet 1,000 mg PO Q8H PRN (Reason: Pain) RF: 0 furosemide [Lasix] 40 mg Tablet 60 mg PO QAM RF: 0 atorvastatin 80 mg Tablet 80 mg PO QPM RF: 0 polyethylene glycol 3350 [Miralax] 17 gram Powder In Packet 17 g PO PM RF: 0 metoprolol succinate 50 mg Tablet Extended Release 24 Hr 50 mg PO QAM RF: 0 clopidogrel 75 mg Tablet 75 mg PO QAM RF: 0 ascorbic acid (vitamin C) [Vitamin C] 500 mg Tablet 500 mg PO QAM RF: 0 ferrous sulfate 325 mg (65 mg iron) Tablet 325 mg PO Q2D RF: 0 nitroglycerin 0.4 mg Tablet, Sublingual 0.4 mg sublingual UD PRN (Reason: Chest Pain) RF: 0 docusate sodium [Colace] 100 mg Capsule 100 mg PO BID PRN (Reason: Constipation) RF: 0 fluticasone propionate [Flonase Allergy Relief] 50 mcg/actuation [place],Suspension 1 spray INTRANASAL DAILY PRN (Reason: Allergy Symptoms) RF: 0 finasteride [Proscar] 5 mg Tablet 5 mg PO QPM RF: 0 Tradjenta 5 mg Tablet 5 mg PO QAM RF: 0 Discharge Orders: Discharge Order (Routine); Ordered 08/27/21 Ordered By: Kelvin Gardner/Other Patient Handouts: Managing Type 2 Diabetes Admission Data Admit Date/Time: 08/22/21 09:43 Attending Provider: Kelvin Walton Admit Provider: Kelvin Walton Primary Care Provider: Astrid Burgess Other Providers: [facility] ; [facility] ; Anna Posey ; Reyes Nick ; Lynette David ; Josey Marie ; Chetna Polk ; Genoveva Sheldon ; Corbin Monsivais ; Sim Manzano ; Leroy Damon ; Susanna Mancini ; Goldy Fernandez ; Connie Wadsworth ; Maria Luisa Ennis ; Rhoith Bradford ; Jessica Cabrera ; Katelynn Madsen ; Mak Linda ; Martha Ibarra I. ; Amaury Kaur ; Mason Caldwell ; Scott Luna ; Dayanara Garcia ; Randy Matson ; Oj Ludwig Other Interventions: Discharge Summary Assessment (RN) Last Done: 08/27/21 10:00
--- NOTE | 2021-09-05 08:18 | Coding Query ---
PATHOLOGY To promote full compliance with coding requirements relating to patient care, physician participation is requested in all cases of golf cart repairer uncertainty. Please assist us with the question(s) below: Please review the Pathology report and please document any relevant diagnosis(es) below: Diagnosis(es): villous adenoma of colon Thank you [facility]
== END 2021-08-27 11:00 | DRG 330 ==
LOC: ASU 05:00 → PACUINP 09:43 → 3E 13:07 → 2S 08-23 19:35 → 2E 08-24 08:35